=== PATIENT | female | born 1970 | race Caucasian/White ===

== ENCOUNTER 2017-11-11 17:34 | Inpatient (IN) | payer OTHER ==
[2017-11-11 19:19] LABS: HCT 42.4 % (34.0-46.0); HGB 13.7 gm/dL (11.4-16.0); MCH 28.2 pg (25.0-35.0); MCHC 32.4 g/dL (31.0-37.0); MCV 87.2 fL (80.0-100.0); Mean Platelet Volume 6.5; Platelet Count 319 k/uL (150-450); RBC 4.86 m/uL (3.80-5.40); RDW 14.1 % (11.5-15.5); WBC 7.1 k/uL (3.8-10.6)
[2017-11-11] MEDS ORDERED: HYDROcodone/APAP 5-325MG 1 EACH TAB PO STA (19:28)
[2017-11-11] MEDS ORDERED: cefTRIAXone IN SWFI 1,000 MG/10 ML SYRINGE IVP STA (19:53)
--- NOTE | 2017-11-11 20:04 | XR ---
EXAMINATION TYPE: XR mandible complete DATE OF EXAM: 11/11/2017 COMPARISON: NONE HISTORY: Mandible pain TECHNIQUE: 5 views FINDINGS: The mandibular ring is intact. I see no fracture nor dislocation. IMPRESSION: Negative mandible exam.
[2017-11-11] MEDS ORDERED: ACETAMINOPHEN TAB 325 MG TAB PO PRN (21:12)
[2017-11-11] MEDS ORDERED: NALOXONE 0.4 MG/ML 1 ML VIAL IV PRN (21:12)
--- NOTE | 2017-11-11 21:12 | ED ---
General Adult HPI - General Chief complaint: Dental/Oral Stated complaint: POSS INFECTION FEVER Time Seen by Provider: 11/11/17 18:16 Source: patient Mode of arrival: ambulatory Limitations: no limitations - History of Present Illness Initial comments: 47-year-old female since to the emergency department for a chief complaint of mandibular pain 3 days. Patient had all her teeth pulled re-days ago and pain has been increasing since that time. Patient states she has had fevers at home but she has not checked them. Patient states she has a history of osteomyelitis in the jaw. She states her symptoms feel very similar to that. She states the last time she had osteomyelitis it occurred when she had an infected tooth pulled and she states the tooth she had pulled 3 days ago was infected. Patient states the pain is in her jaw and radiating down her neck. Patient states the pain is uncontrolled with Motrin and [place]. Patient has no other complaints at this time including shortness of breath, chest pain, abdominal pain, nausea or vomiting, headache, or visual changes. - Related Data Home Medications Medication Instructions Recorded Confirmed Albuterol Inhaler [Ventolin 2 puff INHALATION Q4HR PRN 10/02/11/11/17 Inhaler] Cephalexin [Keflex] 500 mg PO QID 11/11/17 11/11/17 Clindamycin HCl [Cleocin] 150 mg PO TID 11/11/17 11/11/17 Gabapentin [Neurontin] 800 mg PO TID 11/11/17 11/11/17 HYDROcodone/APAP 5-325MG [[place] 1 tab PO Q6H PRN 11/11/17 11/11/17 5-325] Metoprolol Tartrate [Lopressor] 50 mg PO BID 11/11/17 11/11/17 Montelukast [Singulair] 10 mg PO HS 11/11/17 11/11/17 Omeprazole [PriLOSEC] 40 mg PO DAILY 11/11/17 11/11/17 Simvastatin [Zocor] 10 mg PO HS 11/11/17 11/11/17 Temazepam [Restoril] 15 mg PO HS PRN 11/11/17 11/11/17 amLODIPine [Norvasc] 10 mg PO HS 11/11/17 11/11/17 cloNIDine HCL [Catapres] 0.3 mg PO BID 11/11/17 11/11/17 traMADol HCL [Ultram] 50 mg PO BID PRN 11/11/17 11/11/17 Allergies Allergy/AdvReac Type Severity Reaction Status Date / Time ibuprofen [From Motrin] Allergy Unknown Verified 11/11/17 18:17 NSAIDS (Non-Steroidal Allergy Unknown Verified 11/11/17 18:17 Anti-Inflamma Penicillins Allergy Unknown Verified 11/11/17 18:17 Sulfa (Sulfonamide Allergy Unknown Verified 11/11/17 18:17 Antibiotics) vancomycin Allergy Unknown Verified 11/11/17 18:17 Review of Systems ROS Statement: Those systems with pertinent positive or pertinent negative responses have been documented in the HPI. ROS Other: All systems not noted in ROS Statement are negative. Past Medical History Past Medical History: COPD, Seizure Disorder Additional Past Medical History / Comment(s): pancreatitis History of Any Multi-Drug Resistant Organisms: None Reported Past Surgical History: Orthopedic Surgery Additional Past Surgical History / Comment(s): knee surgery Past Psychological History: Anxiety, PTSD Smoking Status: Current every day smoker Past Alcohol Use History: None Reported Past Drug Use History: None Reported General Exam Limitations: no limitations General appearance: alert, in no apparent distress Head exam: Present: atraumatic, normocephalic, normal inspection Eye exam: Present: normal appearance, PERRL, EOMI. Absent: scleral icterus, conjunctival injection, periorbital swelling ENT exam: Present: mucous membranes moist, TM's normal bilaterally, normal external ear exam, other (tenderness in right side mandible, no significant swelling noted to the mandible or neck.). Absent: normal oropharynx (patient has had all teeth removed. Mild purulent material noted on teeth.) Neck exam: Present: normal inspection, tenderness (tenderness to lateral side of neck.), full ROM. Absent: meningismus, lymphadenopathy Respiratory exam: Present: normal lung sounds bilaterally. Absent: respiratory distress, wheezes, rales, rhonchi, stridor Cardiovascular Exam: Present: regular rate, normal rhythm, normal heart sounds. Absent: systolic murmur, diastolic murmur, rubs, gallop, clicks Neurological exam: Present: alert, oriented X3, CN II-XII intact Course Vital Signs 11/11/17 11/11/17 17:57 20:44 Temperature 99.8 F H 98.3 F Pulse Rate 106 H 80 Respiratory 18 20 Rate Blood Pressure 118/84 124/56 O2 Sat by Pulse 98 99 Oximetry Medical Decision Making - Medical Decision Making 47-year-old female process to the emergency determine for chief complaint of pain in the right mandible after tooth extraction 3 days ago. Patient has a history of osteomyelitis in the jaw. Patient states the symptoms are exactly similar as when she had that she is very concerned she has osteomyelitis beginning again. Patient borerline febrile in ER 99.8 withHR 106. States she just took tylenol. White count 7.1. CBC unremarkable. CRP 22.2. X-ray of the mandible shows a normal mandible. Discussed with patient going home on antibiotics or being admitted to the emergency department for IV antibiotics. Patient states that she is still very concerned of osteomyelitis and would like to be admitted at this time for IV antibiotics. Patient is penicillin ALLERGIC and states she has been on clindamycin often in the past and it has not helped her dental infections. Discussed with Dr Valdes. - Lab Data Result diagrams: 11/11/17 19:00 Lab Results 11/11/17 11/11/17 Range/Units 19:00 19:00 WBC 7.1 (3.8-10.6) k/uL RBC 4.86 (3.80-5.40) m/uL Hgb 13.7 (11.4-16.0) gm/dL Hct 42.4 (34.0-46.0) % MCV 87.2 (80.0-100.0) fL MCH 28.2 (25.0-35.0) pg MCHC 32.4 (31.0-37.0) g/dL RDW 14.1 (11.5-15.5) % Plt Count 319 (150-450) k/uL C-Reactive Protein 22.2 H (<10.0) mg/L Disposition Clinical Impression: Mandible pain, History of osteomyelitis Disposition: ADMITTED IP TO THIS [facility] Condition: Good Is patient prescribed a controlled substance at d/c from ED?: No Referrals: Nonstaff,Physician [Primary Care Provider] - 1-2 days Time of Disposition: 21:11
[2017-11-11] MEDS: GABAPENTIN 400 MG CAP PO SCH (22:09)
[2017-11-11] MEDS: MORPHINE SULFATE 4 MG/ML SYRINGE IV PRN (22:09)
[2017-11-12] MEDS: SODIUM CHLORIDE 0.9% 1,000 ML IV SCH ×3 (00:16→17:36)
[2017-11-12] MEDS: TEMAZEPAM 15 MG CAP PO PRN ×2 (00:17→20:40)
[2017-11-12] MEDS: NICOTINE 14MG/24HR PATCH TRANSDERM SCH ×2 (00:17→10:15)
[2017-11-12] MEDS: MORPHINE SULFATE 4 MG/ML SYRINGE IV PRN (01:52)
[2017-11-12] MEDS: HYDROmorphone 1 MG/ML 1 ML SYRINGE IVP PRN ×5 (04:14→21:47)
[2017-11-12] MEDS: HYDROcodone/APAP 5-325MG 1 EACH TAB PO PRN ×4 (05:19→20:39)
[2017-11-12] MEDS: clonazePAM 1 MG TAB PO PRN ×2 (05:48→23:30)
[2017-11-12] MEDS: PANTOPRAZOLE 40 MG TABLET PO SCH ×3 (06:40→10:15)
[2017-11-12] MEDS ORDERED: METOPROLOL TARTRATE 50 MG TAB PO SCH (09:00)
[2017-11-12] MEDS ORDERED: cefTRIAXone IN SWFI 1,000 MG/10 ML SYRINGE IVP SCH (09:00)
[2017-11-12] MEDS: cloNIDine HCL 0.1 MG TAB PO SCH ×2 (09:54→20:48)
[2017-11-12] MEDS: METOPROLOL TARTRATE 50 MG TAB PO SCH ×2 (09:55→21:20)
[2017-11-12] MEDS: GABAPENTIN 400 MG CAP PO SCH ×3 (10:15→20:38)
[2017-11-12 11:47] LABS: Glucose,Whole Blood 110 mg/dL (75-99)
--- NOTE | 2017-11-12 13:53 | HP ---
HISTORY AND PHYSICAL Leia Monteiro is a 47-year-old female who presented to the ED at [facility] with pain in her jaw. She had teeth pulled in her mandibular area at the [facility] and previously had a history of osteomyelitis in the jaw. She had an infected tooth recently which was pulled about 3-4 days ago. She is also having some pain radiating down her neck. She subsequently was seen in the ED and admitted for further evaluation. She apparently had been on antibiotics for the last 2 weeks. PAST MEDICAL HISTORY: Positive for pancreatitis, seizure disorder, right knee surgery, previous infection of her right knee, anxiety, PTSD. SOCIAL HISTORY: Patient is a smoker. Does not drink alcohol excessively. FAMILY HISTORY: Noncontributory. MEDICATIONS: Prior to admission were: 1. Restoril. 2. Metoprolol. 3. Klonopin. 4. Catapres. 5. Norvasc. 6. [place]. 7. Neurontin. 8. Prilosec. 9. Cleocin. 10.Keflex. 11.Singulair. 12.Zocor. 13.Ventolin. REVIEW OF SYSTEMS: Noncontributory. PHYSICAL EXAMINATION: Respiratory rate is 18, pulse rate 90, temperature 98.4, blood pressure 106/63, O2 SATs on room air is 95%. HEENT: Reveals pupils equal, evaluation of the jaw does show a recent scar within the mandibular area on the right with some minimal drainage. There is no jugular venous distention. No lymphadenopathy in the neck. Chest is relatively clear. Cardiovascular system reveals an S1, S2. Abdomen is soft. There is no edema. Glucose is 110. White count of 7.1, hemoglobin of 13.7. Mandibular x-ray done showed no evidence of any changes. IMPRESSION: 1. Mandibular pain on the right. 2. Possible osteomyelitis. 3. Chronic pain. 4. Asthma versus chronic obstructive pulmonary disease, which may be mild. At this point in time, would have the patient seen by oral surgery and Infectious diseases. Would keep the patient on Rocephin until seen by ID. Continue Singulair and bronchodilators. Her prognosis at this time is guarded. MMODL / IJN: [id number] /
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
[2017-11-12] MEDS: MEROPENEM 1 GM in SODIUM CHLORIDE 0.9% 100 ML IVPB SCH ×2 (17:35→23:30)
--- NOTE | 2017-11-12 17:39 | XR ---
EXAMINATION TYPE: XR panorex DATE OF EXAM: 11/12/2017 COMPARISON: 11/11/2017 HISTORY: Right jaw osteomyelitis TECHNIQUE: Single view panorex of the jaw was obtained. FINDINGS: Right mandibular tooth extraction site is seen. No periosteal reaction is noted. No evidenc e of acute fracture or dislocation. No focal sclerosis. Visualized paranasal sinuses appear well aera david. IMPRESSION: Right mandibular site of tooth extraction is noted however no definitive evidence of oste omyelitis on radiograph. MRI could be performed to evaluate for bone marrow replacing process such as osteomyelitis and enhancement if there is further clinical indication.
[2017-11-12] MEDS: ATORVASTATIN 10 MG TAB PO SCH (20:38)
[2017-11-12] MEDS: MONTELUKAST 10 MG TAB PO SCH (20:38)
[2017-11-12] MEDS: QUEtiapine 25 MG TAB PO SCH (20:40)
[2017-11-12] MEDS: amLODIPine 10 MG TAB PO SCH (21:20)
[2017-11-13] MEDS: HYDROcodone/APAP 5-325MG 1 EACH TAB PO PRN ×6 (00:01→22:13)
[2017-11-13] MEDS: HYDROmorphone 1 MG/ML 1 ML SYRINGE IVP PRN ×5 (04:38→20:18)
[2017-11-13] MEDS: SODIUM CHLORIDE 0.9% 1,000 ML IV SCH ×2 (04:38→14:36)
[2017-11-13 07:51] LABS: Basophils % (A) 0 %; Eosinophils # (A) 0.2 k/uL (0-0.7); Eosinophils % (A) 5 %; HCT 37.9 % (34.0-46.0); HGB 12.3 gm/dL (11.4-16.0); Lymphocytes # (A) 1.6 k/uL (1.0-4.8); Lymphocytes % (A) 43 %; MCH 28.9 pg (25.0-35.0); MCHC 32.5 g/dL (31.0-37.0); MCV 89.1 fL (80.0-100.0); Mean Platelet Volume 6.3; Monocytes # (A) 0.1 k/uL (0-1.0); Monocytes % (A) 4 %; Neutrophils # (A) 1.7 k/uL (1.3-7.7); Neutrophils % (A) 47 %; Platelet Count 235 k/uL (150-450); RBC 4.26 m/uL (3.80-5.40); RDW 14.4 % (11.5-15.5); WBC 3.7 k/uL (3.8-10.6)
--- NOTE | 2017-11-13 08:54 | US ---
EXAMINATION TYPE: US venous doppler duplex LE DATE OF EXAM: 11/13/2017 8:42 AM COMPARISON: NONE CLINICAL HISTORY: calf pain/redness/hx of dvt. h/o dvt's and pe's, currently off thinners for 1 year, right calf pain started today, no swelling SIDE PERFORMED: Bilateral TECHNIQUE: The lower extremity deep venous system is examined utilizing real time linear array sonog tiffanie with graded compression, doppler sonography and color-flow sonography. VESSELS IMAGED: External Iliac Vein (EIV) Common Femoral Vein Deep Femoral Vein Greater Saphenous Vein * Femoral Vein Popliteal Vein Small Saphenous Vein * Proximal Calf Veins (* superficial vessels) Large habitus Right Leg: Appears negative for DVT Left Leg: Appears negative for DVT, 4cm complex fluid collection seen anterior to vessels within pop iteal fossa, probable Jaime's cyst IMPRESSION: THIS EXAMINATION IS NEGATIVE FOR DVT IN THE LEFT LEG BUT POSITIVE FOR A SMALL POPLITEAL FOSSA CYST.
[2017-11-13] MEDS: MEROPENEM 1 GM in SODIUM CHLORIDE 0.9% 100 ML IVPB SCH ×2 (08:56→16:41)
[2017-11-13] MEDS: GABAPENTIN 400 MG CAP PO SCH ×3 (08:57→20:16)
[2017-11-13] MEDS: QUEtiapine 25 MG TAB PO SCH (09:07)
[2017-11-13] MEDS: METOPROLOL TARTRATE 50 MG TAB PO SCH ×2 (09:07→20:16)
[2017-11-13] MEDS: NICOTINE 14MG/24HR PATCH TRANSDERM SCH (09:08)
[2017-11-13] MEDS: cloNIDine HCL 0.1 MG TAB PO SCH ×2 (09:08→20:18)
[2017-11-13 10:34] LABS: Erythrocyte Sedimentation Rate 13 mm/hr (0-20)
--- NOTE | 2017-11-13 14:00 | P.PN ---
Subjective Progress Note Date: 11/13/17 47-year-old female presents to the emergency center with a several- day history of increasing pain and swelling to the right lower jaw that radiated into her neck and her clavicle. The patient relates to a history of bulimia and has had multiple dental troubles over the years. Earlier this summer she underwent a removal of all of her upper teeth and had early denture placement. She did relatively well but then was having increasing difficulties with her lower jaw. She eventually underwent tooth extraction from the lower jaw recently and at that time there was evidence of a abscess to the right lower jaw. The teeth were extracted and she was placed into an early fit denture. The patient relates that several days ago she started feeling poorly and 3 days ago her pain started to become increasingly worse she continued to have pain and swelling to the right lower jaw and is noted to track down on her neck she was still able to taste the purulent discharge from the area of the prior abscess. He has pain increased and she was having bouts of feeling cold and hot she presented to the emergency center. If in time there is evidence of significant swelling to the right lower jaw, she had increasing pain and subsequently was admitted. With concerns to the infection at that site the infectious diseases consultation was requested. The patient this time is quite miserable. She's having severe amount of anxiety related to the difficulties with her jaw. She relates that she's had osteomyelitis of the jaw in the past that was a very difficult event for her. She does have difficulties with PTSD related to the events that resulted in her bulimia many years ago. The patient relates that she has been on antibiotic therapy with combination of clindamycin as well as Keflex 3 weeks on 1 week off for the last many months. 11/13/2017 patient is feeling slightly better today. Although was quite difficult with the nurses and transport staff earlier this morning. She was very demanding about the timing of her narcotic therapy. She fortunately now is settled down quite a bit, and a duplex scan was negative for deep venous thrombosis. Is noted the patient has had severe pain to the oral cavity which seems to be improved today. She appears that she get some rest with the addition of Seroquel last night. The patient is informed that the Panorex study has not revealed evidence of osteomyelitis Objective - Vital Signs Vital signs: Vital Signs Temp 97.7 F 11/13/17 08:00 Pulse 93 07/29/18 08:00 Resp 18 11/13/17 08:00 BP 130/80 11/13/17 10:51 Pulse Ox 95 11/13/17 08:00 Intake & Output 11/12/17 11/13/17 11/13/17 18:59 06:59 18:59 Intake Total 180 820 Balance 180 820 Intake: Oral 180 820 Other: # Voids 2 2 - Exam 47-year-old woman who presents with a BMI of 35, complains of severe pain to the right lower jaw HEENT: Anicteric conjunctiva are pink and moist nasal mucosa grossly intact without significant lesions, there is no thrush. There is evidence of the recent surgical extraction of the teeth. Multiple sutures are in place. She has distinct and severe tenderness to the right lower jaw. She is able to open and close her jaw freely at this time. There is no trismus. The amount of erythema that was present on the neck and lower jaw has improved in the last 24 hours She has distinct tenderness inferior to the jaw onto the right lateral aspect of the neck that travels down to the clavicle. There is no significant palpable mass in this region. Neck: The neck is supple without significant lymphadenopathy or thyromegaly. Lungs: Good bilateral air entry without significant crackles only few wheezes are heard. There is no significant bronchial sounds. There is no egophony or dullness. Heart: Regular rate and rhythm with an audible S1-S2, no S3 no S4. There is no significant murmur click or rub, PMI was nondisplaced. Abdomen: Positive bowel sounds soft and nontender without palpable masses or organomegaly. There was no guarding or rebound. Extremities: The upper extremities have excellent pulses they are symmetric, no significant petechiae or telangiectasia. No splinter hemorrhages were noted. The lower extremities are free from significant edema. The peripheral pulses were 2+ and symmetric. Neuro: Awake alert oriented to person place and time. There are no acute new gross focal sensory motor deficits. She is less anxious anxious, but was very difficult with the staff earlier in the day. - Labs CBC & Chem 7: 11/13/17 07:30 Labs: Abnormal Lab Results - Last 24 Hours (Table) 11/13/17 Range/Units 07:30 WBC 3.7 L (3.8-10.6) k/uL Microbiology - Last 24 Hours (Table) 11/11/17 19:00 Blood Culture - Preliminary Blood No Growth after 24 hours Laboratory Results WBC 3.7 k/uL (3.8-10.6) L 11/13/17 07:30 RBC 4.26 m/uL (3.80-5.40) 11/13/17 07:30 Hgb 12.3 gm/dL (11.4-16.0) 11/13/17 07:30 Hct 37.9 % (34.0-46.0) 11/13/17 07:30 MCV 89.1 fL (80.0-100.0) 11/13/17 07: MCH 28.9 pg (25.0-35.0) 11/13/17 07: MCHC 32.5 g/dL (31.0-37.0) 11/13/17 07:30 RDW 14.4 % (11.5-15.5) 11/13/17 07:30 Plt Count 235 k/uL (150-450) 11/13/17 07:30 Neutrophils % 47 % 11/13/17 07:30 Lymphocytes % 43 % 11/13/17 07:30 Monocytes % 4 % 11/13/17 07:30 Eosinophils % 5 % 11/13/17 07:30 Basophils % 0 % 11/13/17 07:30 Neutrophils # 1.7 k/uL (1.3-7.7) 11/13/17 07:30 Lymphocytes # 1.6 k/uL (1.0-4.8) 11/13/17 07:30 Monocytes # 0.1 k/uL (0-1.0) 11/13/17 07:30 Eosinophils # 0.2 k/uL (0-0.7) 11/13/17 07:30 Basophils # 0.0 k/uL (0-0.2) 11/13/17 07:30 ESR 13 mm/hr (0-20) 11/13/17 07:30 POC Glucose (mg/dL) 110 mg/dL (75-99) H 11/12/17 11:41 POC Glu Records Coordinator ID Renay Limon 11/12/17 11:41 C-Reactive Protein 22.2 mg/L (<10.0) H 11/11/17 19:00 Panorex reviewed no evidence of any periosteal reaction or osteomyelitis to the jaw. Assessment and Plan (1) Mandible pain Narrative/Plan: 47-year-old woman who has a history of severe tooth decay related to her years of bulimia when she was younger. She is ready had complete extraction of the upper teeth and I will relatively well starting earlier this summer. Recently underwent the lower jaw tooth extraction was having difficulty with what appears to be an abscess to the right lower jaw. She relates that she's been treated with an extensive course of outpatient oral antibiotic therapy and it is now developed a significant difficulty with the right lower jaw. There is swelling to the tissue I cannot express any purulence at this time. It however is extremely tender over the lower jaw. There is also tenderness to the neck with some scant erythema but no fluctuance. The neck is completely supple. If this time concerns to infection to the site that he has not been treated with clindamycin and cephalexin. She relates that she has a significant difficulty with penicillin that she developed a rash with bloody blisters she was a teenager and has not taken it since. Has not had difficulties with cephalosporins as noted above. Consequently at this point in time we'll initiate antibiotic therapy with meropenem to cover for the plethora of bacteria that may exist within the oral cavity. With her ALLERGIES should be acceptable and then if necessary will be able to transition to ertapenem as an outpatient. We'll ask for a Panorex x- ray of the jaw to further evaluate for the possibility of infection within the right lower mandible. If underlying osteomyelitis exists within need to plan on outpatient antibiotic therapy. Follow blood work will be requested. Patient is also having severe anxiety, pain control is adequate but she is ALLERGIC to nonsteroidals and constantly Toradol cannot be given. We'll give a trial of Seroquel at a dose of 25 mg orally twice per day to see if this can help with her severe refractory anxiety. 11/13/2017 the patient has had some improvement of her status, especially now later in the morning is much more calm and pain is better controlled. The patient was on a many week course of oral antibiotic therapy in the outpatient setting and developed a significant infection related to the jaw that appeared to track through the neck. At this time she is showing improvement with current antibiotic therapy of meropenem. We discussed the failure of the oral antibiotic therapy and will transition her to Invanz to be given in the outpatient setting when she is ready for discharge to home. She understands that I will not be in charge of her pain medication. She however has significant anxiety Seroquel was started she did receive some relief to it but will increase the dose and that the 25 mg dose did not seem to be ideal yet. We'll ask for a midline catheter be placed for her outpatient antibiotic therapy. Current Visit: Yes Status: Acute Code(s): R68.84 - JAW PAIN SNOMED Code(s) : 386737102 (2) History of osteomyelitis Current Visit: Yes Status: Acute Code(s): Z87.39 - PERSONAL HISTORY OF DISEASES OF THE MS SYS AND CONN TISS SNOMED Code(s): 133689986
--- NOTE | 2017-11-13 14:09 | PN ---
PROGRESS NOTE DATE OF SERVICE: 11/13/2017 She was seen again on November 13, 2017. Her pain is under control. She has been seen by ID and started on meropenem. She is doing better overall. On physical examination, blood pressure is 130/80, respiratory rate of 18, pulse of 93, temperature 97.7, O2 saturation on room air is 95%. HEENT is unremarkable. Chest is clear. Cardiovascular system reveals an S1, S2. Abdomen is soft. There is no edema. Venous Doppler study of her leg shows negative for DVT, but a Jaime cyst in the left leg. A Panorex view of her mandible shows evidence of right mandibular site of tooth extraction with no definite of evidence osteomyelitis. IMPRESSION: At this time: 1. Right mandibular osteomyelitis and infection is likely. 2. Intense pain right mandible. At this point in time, consideration is being given for IV antibiotics that may be done as an outpatient. Patient is being seen by ID and we appreciate their input and intervention. MMODL / IJN: [id number] /
[2017-11-13] MEDS: ATORVASTATIN 10 MG TAB PO SCH (20:16)
[2017-11-13] MEDS: amLODIPine 10 MG TAB PO SCH (20:16)
[2017-11-13] MEDS: MONTELUKAST 10 MG TAB PO SCH (20:17)
[2017-11-13] MEDS: QUEtiapine 50 MG TAB PO SCH (20:19)
[2017-11-14] MEDS: SODIUM CHLORIDE 0.9% 1,000 ML IV SCH ×3 (00:17→21:05)
[2017-11-14] MEDS: clonazePAM 1 MG TAB PO PRN (00:18)
[2017-11-14] MEDS: MEROPENEM 1 GM in SODIUM CHLORIDE 0.9% 100 ML IVPB SCH ×4 (00:18→23:50)
[2017-11-14] MEDS: HYDROmorphone 1 MG/ML 1 ML SYRINGE IVP PRN ×4 (00:18→18:06)
[2017-11-14] MEDS: PANTOPRAZOLE 40 MG TABLET PO SCH (06:16)
[2017-11-14] MEDS: HYDROcodone/APAP 5-325MG 1 EACH TAB PO PRN ×3 (08:33→21:03)
[2017-11-14] MEDS: NICOTINE 14MG/24HR PATCH TRANSDERM SCH ×2 (08:33→08:35)
[2017-11-14] MEDS: GABAPENTIN 400 MG CAP PO SCH ×3 (08:35→21:03)
[2017-11-14] MEDS: cloNIDine HCL 0.1 MG TAB PO SCH ×2 (08:35→21:03)
[2017-11-14] MEDS: METOPROLOL TARTRATE 50 MG TAB PO SCH ×2 (08:35→21:03)
[2017-11-14] MEDS: CYCLOBENZAPRINE 5 MG TAB PO PRN (18:05)
[2017-11-14] MEDS: amLODIPine 10 MG TAB PO SCH (21:03)
[2017-11-14] MEDS: ATORVASTATIN 10 MG TAB PO SCH (21:03)
[2017-11-14] MEDS: TEMAZEPAM 15 MG CAP PO PRN (21:03)
[2017-11-14] MEDS: MONTELUKAST 10 MG TAB PO SCH (21:04)
[2017-11-14] MEDS: QUEtiapine 50 MG TAB PO SCH (21:04)
--- NOTE | 2017-11-14 23:29 | P.PN ---
Subjective Progress Note Date: 11/14/17 47-year-old female presents to the emergency center with a several- day history of increasing pain and swelling to the right lower jaw that radiated into her neck and her clavicle. The patient relates to a history of bulimia and has had multiple dental troubles over the years. Earlier this summer she underwent a removal of all of her upper teeth and had early denture placement. She did relatively well but then was having increasing difficulties with her lower jaw. She eventually underwent tooth extraction from the lower jaw recently and at that time there was evidence of a abscess to the right lower jaw. The teeth were extracted and she was placed into an early fit denture. The patient relates that several days ago she started feeling poorly and 3 days ago her pain started to become increasingly worse she continued to have pain and swelling to the right lower jaw and is noted to track down on her neck she was still able to taste the purulent discharge from the area of the prior abscess. He has pain increased and she was having bouts of feeling cold and hot she presented to the emergency center. If in time there is evidence of significant swelling to the right lower jaw, she had increasing pain and subsequently was admitted. With concerns to the infection at that site the infectious diseases consultation was requested. The patient this time is quite miserable. She's having severe amount of anxiety related to the difficulties with her jaw. She relates that she's had osteomyelitis of the jaw in the past that was a very difficult event for her. She does have difficulties with PTSD related to the events that resulted in her bulimia many years ago. The patient relates that she has been on antibiotic therapy with combination of clindamycin as well as Keflex 3 weeks on 1 week off for the last many months. 11/13/2017 patient is feeling slightly better today. Although was quite difficult with the nurses and transport staff earlier this morning. She was very demanding about the timing of her narcotic therapy. She fortunately now is settled down quite a bit, and a duplex scan was negative for deep venous thrombosis. Is noted the patient has had severe pain to the oral cavity which seems to be improved today. She appears that she get some rest with the addition of Seroquel last night. The patient is informed that the Panorex study has not revealed evidence of osteomyelitis 11/14/2017 the patient is further improved today and that she's been able to apply her lower denture. She has much less purulent drainage from the lower jaw. Pain in the neck is improved but persistent. She did obtain some sleep from Seroquel but the dose will be increased. As she is improving we'll transition to an outpatient course of intravenous antibiotic therapy. She understands that her pain control is per the primary service. Objective - Vital Signs Vital signs: Vital Signs Temp 98.8 F 11/14/17 22:38 Pulse 65 11/14/17 22:38 Resp 12 11/14/17 22:38 BP 118/64 11/14/17 22:38 Pulse Ox 95 11/14/17 22:38 Intake & Output 11/14/17 11/14/17 11/15/17 06:59 18:59 06:59 Intake Total 2220 Balance 2220 Intake: Oral 2220 Other: # Voids 2 2 - Exam 47-year-old woman who presents with a BMI of 35, complains of severe pain to the right lower jaw HEENT: Anicteric conjunctiva are pink and moist nasal mucosa grossly intact without significant lesions, there is no thrush. There is evidence of the recent surgical extraction of the teeth. Multiple sutures are in place. She has distinct and severe tenderness to the right lower jaw. She is able to open and close her jaw freely at this time. There is no trismus. Th erythema that was present on the neck and lower jaw has generally resolved, She has distinct tenderness inferior to the jaw onto the right lateral aspect of the neck that travels down to the clavicle. This however is improved today. There is no significant palpable mass in this region. Neck: The neck is supple without significant lymphadenopathy or thyromegaly. Lungs: Good bilateral air entry without significant crackles only few wheezes are heard. There is no significant bronchial sounds. There is no egophony or dullness. Heart: Regular rate and rhythm with an audible S1-S2, no S3 no S4. There is no significant murmur click or rub, PMI was nondisplaced. Abdomen: Positive bowel sounds soft and nontender without palpable masses or organomegaly. There was no guarding or rebound. Extremities: The upper extremities have excellent pulses they are symmetric, no significant petechiae or telangiectasia. No splinter hemorrhages were noted. The lower extremities are free from significant edema. The peripheral pulses were 2+ and symmetric. Neuro: Awake alert oriented to person place and time. There are no acute new gross focal sensory motor deficits. She is less anxious anxious, but was very difficult with the staff earlier in the day. - Labs CBC & Chem 7: 11/13/17 07:30 Labs: Microbiology - Last 24 Hours (Table) 11/11/17 19:00 Blood Culture - Preliminary Blood No Growth after 72 hours Laboratory Results WBC 3.7 k/uL (3.8-10.6) L 11/13/17 07:30 RBC 4.26 m/uL (3.80-5.40) 11/13/17 07:30 Hgb 12.3 gm/dL (11.4-16.0) 11/13/17 07:30 Hct 37.9 % (34.0-46.0) 11/13/17 07: MCV 89.1 fL (80.0-100.0) 11/13/17 07: MCH 28.9 pg (25.0-35.0) 11/13/17 07:30 MCHC 32.5 g/dL (31.0-37.0) 11/13/17 07:30 RDW 14.4 % (11.5-15.5) 11/13/17 07:30 Plt Count 235 k/uL (150-450) 11/13/17 07:30 Neutrophils % 47 % 11/13/17 07:30 Lymphocytes % 43 % 11/13/17 07:30 Monocytes % 4 % 11/13/17 07:30 Eosinophils % 5 % 11/13/17 07: Basophils % 0 % 11/13/17 07:30 Neutrophils # 1.7 k/uL (1.3-7.7) 11/13/17 07:30 Lymphocytes # 1.6 k/uL (1.0-4.8) 11/13/17 07: Monocytes # 0.1 k/uL (0-1.0) 11/13/17 07: Eosinophils # 0.2 k/uL (0-0.7) 11/13/17 07:30 Basophils # 0.0 k/uL (0-0.2) 11/13/17 07:30 ESR 13 mm/hr (0-20) 11/13/17 07:30 POC Glucose (mg/dL) 110 mg/dL (75-99) H 11/12/17 11:41 POC Glu Supervisor [employer] ID Renay Limon 11/12/17 11:41 C-Reactive Protein 22.2 mg/L (<10.0) H 11/11/17 19:00 Microbiology 11/11/17 19:00 Blood Blood Culture - Preliminary No Growth after 72 hours Assessment and Plan (1) Mandible pain Narrative/Plan: 47-year-old woman who has a history of severe tooth decay related to her years of bulimia when she was younger. She is ready had complete extraction of the upper teeth and I will relatively well starting earlier this summer. Recently underwent the lower jaw tooth extraction was having difficulty with what appears to be an abscess to the right lower jaw. She relates that she's been treated with an extensive course of outpatient oral antibiotic therapy and it is now developed a significant difficulty with the right lower jaw. There is swelling to the tissue I cannot express any purulence at this time. It however is extremely tender over the lower jaw. There is also tenderness to the neck with some scant erythema but no fluctuance. The neck is completely supple. If this time concerns to infection to the site that he has not been treated with clindamycin and cephalexin. She relates that she has a significant difficulty with penicillin that she developed a rash with bloody blisters she was a teenager and has not taken it since. Has not had difficulties with cephalosporins as noted above. Consequently at this point in time we'll initiate antibiotic therapy with meropenem to cover for the plethora of bacteria that may exist within the oral cavity. With her ALLERGIES should be acceptable and then if necessary will be able to transition to ertapenem as an outpatient. We'll ask for a Panorex x- ray of the jaw to further evaluate for the possibility of infection within the right lower mandible. If underlying osteomyelitis exists within need to plan on outpatient antibiotic therapy. Follow blood work will be requested. Patient is also having severe anxiety, pain control is adequate but she is ALLERGIC to nonsteroidals and constantly Toradol cannot be given. We'll give a trial of Seroquel at a dose of 25 mg orally twice per day to see if this can help with her severe refractory anxiety. 11/13/2017 the patient has had some improvement of her status, especially now later in the morning is much more calm and pain is better controlled. The patient was on a many week course of oral antibiotic therapy in the outpatient setting and developed a significant infection related to the jaw that appeared to track through the neck. At this time she is showing improvement with current antibiotic therapy of meropenem. We discussed the failure of the oral antibiotic therapy and will transition her to Invanz to be given in the outpatient setting when she is ready for discharge to home. She understands that I will not be in charge of her pain medication. She however has significant anxiety Seroquel was started she did receive some relief to it but will increase the dose and that the 25 mg dose did not seem to be ideal yet. We'll ask for a midline catheter be placed for her outpatient antibiotic therapy. 11/14/2017 the patient has had some improvement of her status but is complaining of difficulties with pain. Despite this she now has her lower denture and is tolerating it quite well. Working with the insurance company for approval of her outpatient intravenous antibiotic therapy given the failure of oral antibiotic therapy that she was on. It with her ALLERGIES ertapenem is a most logical choice to cover the pathogens of the oral cavity. He has noted it was likely that she was having some extension of the infection through the venous and lymphatic drainage at the neck is now showing marked improvement. The Panorex and did not reveal evidence of osteomyelitis. The patient is anxious about her pain control and again this is directed to the primary service , she is instructed that she needs to limit the intravenous pain medicine that she is on because she will not receiving that as of tomorrow when she is discharged home. Current Visit: Yes Status: Acute Code(s): R68.84 - JAW PAIN SNOMED Code(s) : 945789248 (2) History of osteomyelitis Current Visit: Yes Status: Acute Code(s): Z87.39 - PERSONAL HISTORY OF DISEASES OF THE MS SYS AND CONN TISS SNOMED Code(s): 567227320
--- NOTE | 2017-11-15 00:28 | PN ---
PROGRESS NOTE DATE OF SERVICE: 11/14/2017. SUBJECTIVE: This is a 47-year-old white female with right mandibular infection, cellulitis of the right cheek, on heavy duty pain medicine. She is trying to be weaned off pain medicine that was started over this weekend prior to going home. She will need 2 weeks of IV antibiotics as an outpatient. OBJECTIVE: CARDIOVASCULAR: S1, S2. LUNGS: Clear. ENT: Shows mild jaw swelling, mild to moderate. She is able to chew and swallow. ASSESSMENT AND PLAN: Is allergic to all kinds of NSAIDs, codeine. She will be weaned off Dilaudid so she can be discharged home on IV antibiotics over the next 2 weeks, in the next 24 hours. MMODL / IJN: [id number] /
[2017-11-15] MEDS: CYCLOBENZAPRINE 5 MG TAB PO PRN (02:03)
[2017-11-15] MEDS: HYDROmorphone 1 MG/ML 1 ML SYRINGE IVP PRN ×3 (02:04→14:08)
[2017-11-15] MEDS: SODIUM CHLORIDE 0.9% 1,000 ML IV SCH (06:13)
[2017-11-15] MEDS: clonazePAM 1 MG TAB PO PRN (06:17)
[2017-11-15] MEDS: HYDROcodone/APAP 5-325MG 1 EACH TAB PO PRN ×4 (06:17→22:00)
[2017-11-15] MEDS: MEROPENEM 1 GM in SODIUM CHLORIDE 0.9% 100 ML IVPB SCH ×2 (07:53→16:21)
[2017-11-15] MEDS: PANTOPRAZOLE 40 MG TABLET PO SCH (08:17)
[2017-11-15] MEDS: NICOTINE 14MG/24HR PATCH TRANSDERM SCH (10:06)
[2017-11-15] MEDS: GABAPENTIN 400 MG CAP PO SCH ×3 (10:06→20:53)
[2017-11-15] MEDS: METOPROLOL TARTRATE 50 MG TAB PO SCH ×2 (10:06→20:54)
[2017-11-15] MEDS: cloNIDine HCL 0.1 MG TAB PO SCH ×2 (10:07→20:54)
[2017-11-15] MEDS: amLODIPine 10 MG TAB PO SCH (20:53)
[2017-11-15] MEDS: ATORVASTATIN 10 MG TAB PO SCH (20:53)
[2017-11-15] MEDS: MONTELUKAST 10 MG TAB PO SCH (20:53)
[2017-11-15] MEDS: QUEtiapine 50 MG TAB PO SCH (20:53)
--- NOTE | 2017-11-15 22:53 | PN ---
PROGRESS NOTE SUBJECTIVE: This is a white female. We are trying to wean her off the medications and give her oral pain medications and continue with IV antibiotics as an outpatient. Possibly discharge home tomorrow. Temperature 98.5, blood pressure is 120s-150s/90s-100, O2 95% on room air, pulse 70, respirations 16. She is status post PICC line placement today, awaiting possible discharge home tomorrow. CARDIOVASCULAR: S1, S2. LUNGS: Clear. RIGHT MANDIBLE: She is able to open and close her jaw, is eating apparently appropriate. She is feeling better today. She is weaning off Dilaudid. Anxiety and possibly bipolar. given her a trial Seroquel 25 mg twice a day due to anxiety and possibly discharge home tomorrow. MMODL / IJN: [id number] /
--- NOTE | 2017-11-15 23:18 | P.PN ---
Subjective Progress Note Date: 11/15/17 47-year-old female presents to the emergency center with a several- day history of increasing pain and swelling to the right lower jaw that radiated into her neck and her clavicle. The patient relates to a history of bulimia and has had multiple dental troubles over the years. Earlier this summer she underwent a removal of all of her upper teeth and had early denture placement. She did relatively well but then was having increasing difficulties with her lower jaw. She eventually underwent tooth extraction from the lower jaw recently and at that time there was evidence of a abscess to the right lower jaw. The teeth were extracted and she was placed into an early fit denture. The patient relates that several days ago she started feeling poorly and 3 days ago her pain started to become increasingly worse she continued to have pain and swelling to the right lower jaw and is noted to track down on her neck she was still able to taste the purulent discharge from the area of the prior abscess. He has pain increased and she was having bouts of feeling cold and hot she presented to the emergency center. If in time there is evidence of significant swelling to the right lower jaw, she had increasing pain and subsequently was admitted. With concerns to the infection at that site the infectious diseases consultation was requested. The patient this time is quite miserable. She's having severe amount of anxiety related to the difficulties with her jaw. She relates that she's had osteomyelitis of the jaw in the past that was a very difficult event for her. She does have difficulties with PTSD related to the events that resulted in her bulimia many years ago. The patient relates that she has been on antibiotic therapy with combination of clindamycin as well as Keflex 3 weeks on 1 week off for the last many months. 11/13/2017 patient is feeling slightly better today. Although was quite difficult with the nurses and transport staff earlier this morning. She was very demanding about the timing of her narcotic therapy. She fortunately now is settled down quite a bit, and a duplex scan was negative for deep venous thrombosis. Is noted the patient has had severe pain to the oral cavity which seems to be improved today. She appears that she get some rest with the addition of Seroquel last night. The patient is informed that the Panorex study has not revealed evidence of osteomyelitis 11/14/2017 the patient is further improved today and that she's been able to apply her lower denture. She has much less purulent drainage from the lower jaw. Pain in the neck is improved but persistent. She did obtain some sleep from Seroquel but the dose will be increased. As she is improving we'll transition to an outpatient course of intravenous antibiotic therapy. She understands that her pain control is per the primary service. 11/15/2017 patient has had further improvement and the lower denture remains in place. Not having purulence in the oral cavity. Overall is improved but is struggling with her pain control. Objective - Vital Signs Vital signs: Vital Signs Temp 98.5 F 11/15/17 20:08 Pulse 70 11/15/17 20:08 Resp 16 11/15/17 20:08 BP 151/113 11/15/17 20:08 Pulse Ox 95 11/15/17 20:08 Intake & Output 11/15/17 11/15/17 11/16/17 06:59 18:59 06:59 Other: Voiding Method Toilet # Voids 1 1 1 # Bowel Movements 1 - Exam 47-year-old woman who presents with a BMI of 35, complains of severe pain to the right lower jaw HEENT: Anicteric conjunctiva are pink and moist nasal mucosa grossly intact without significant lesions, there is no thrush. There is evidence of the recent surgical extraction of the teeth. Multiple sutures are in place. She has distinct and severe tenderness to the right lower jaw. She is able to open and close her jaw freely at this time. There is no trismus. Th erythema that was present on the neck and lower jaw has generally resolved, She has distinct tenderness inferior to the jaw onto the right lateral aspect of the neck that travels down to the clavicle. This however is improved today. There is no significant palpable mass in this region. Neck: The neck is supple without significant lymphadenopathy or thyromegaly. Lungs: Good bilateral air entry without significant crackles only few wheezes are heard. There is no significant bronchial sounds. There is no egophony or dullness. Heart: Regular rate and rhythm with an audible S1-S2, no S3 no S4. There is no significant murmur click or rub, PMI was nondisplaced. Abdomen: Positive bowel sounds soft and nontender without palpable masses or organomegaly. There was no guarding or rebound. Extremities: The upper extremities have excellent pulses they are symmetric, no significant petechiae or telangiectasia. No splinter hemorrhages were noted. The lower extremities are free from significant edema. The peripheral pulses were 2+ and symmetric. Neuro: Awake alert oriented to person place and time. There are no acute new gross focal sensory motor deficits. She is less anxious but still very worried about her pain control at discharge. - Labs CBC & Chem 7: 11/13/17 07:30 Labs: Microbiology - Last 24 Hours (Table) 11/11/17 19:00 Blood Culture - Preliminary Blood No Growth after 96 hours Laboratory Results WBC 3.7 k/uL (3.8-10.6) L 11/13/17 07:30 RBC 4.26 m/uL (3.80-5.40) 11/13/17 07:30 Hgb 12.3 gm/dL (11.4-16.0) 11/13/17 07:30 Hct 37.9 % (34.0-46.0) 11/13/17 07: MCV 89.1 fL (80.0-100.0) 11/13/17 07:30 MCH 28.9 pg (25.0-35.0) 11/13/17 07:30 MCHC 32.5 g/dL (31.0-37.0) 11/13/17 07:30 RDW 14.4 % (11.5-15.5) 11/13/17 07:30 Plt Count 235 k/uL (150-450) 11/13/17 07: Neutrophils % 47 % 11/13/17 07: Lymphocytes % 43 % 11/13/17 07:30 Monocytes % 4 % 11/13/17 07:30 Eosinophils % 5 % 11/13/17 07:30 Basophils % 0 % 11/13/17 07:30 Neutrophils # 1.7 k/uL (1.3-7.7) 11/13/17 07: Lymphocytes # 1.6 k/uL (1.0-4.8) 11/13/17 07:30 Monocytes # 0.1 k/uL (0-1.0) 11/13/17 07:30 Eosinophils # 0.2 k/uL (0-0.7) 11/13/17 07:30 Basophils # 0.0 k/uL (0-0.2) 11/13/17 07:30 ESR 13 mm/hr (0-20) 11/13/17 07:30 POC Glucose (mg/dL) 110 mg/dL (75-99) H 11/12/17 11:41 POC Glu Scaffold Builder ID Renay Limon 11/12/17 11:41 C-Reactive Protein 22.2 mg/L (<10.0) H 11/11/17 19:00 Assessment and Plan (1) Mandible pain Narrative/Plan: 47-year-old woman who has a history of severe tooth decay related to her years of bulimia when she was younger. She is ready had complete extraction of the upper teeth and I will relatively well starting earlier this summer. Recently underwent the lower jaw tooth extraction was having difficulty with what appears to be an abscess to the right lower jaw. She relates that she's been treated with an extensive course of outpatient oral antibiotic therapy and it is now developed a significant difficulty with the right lower jaw. There is swelling to the tissue I cannot express any purulence at this time. It however is extremely tender over the lower jaw. There is also tenderness to the neck with some scant erythema but no fluctuance. The neck is completely supple. If this time concerns to infection to the site that he has not been treated with clindamycin and cephalexin. She relates that she has a significant difficulty with penicillin that she developed a rash with bloody blisters she was a teenager and has not taken it since. Has not had difficulties with cephalosporins as noted above. Consequently at this point in time we'll initiate antibiotic therapy with meropenem to cover for the plethora of bacteria that may exist within the oral cavity. With her ALLERGIES should be acceptable and then if necessary will be able to transition to ertapenem as an outpatient. We'll ask for a Panorex x- ray of the jaw to further evaluate for the possibility of infection within the right lower mandible. If underlying osteomyelitis exists within need to plan on outpatient antibiotic therapy. Follow blood work will be requested. Patient is also having severe anxiety, pain control is adequate but she is ALLERGIC to nonsteroidals and constantly Toradol cannot be given. We'll give a trial of Seroquel at a dose of 25 mg orally twice per day to see if this can help with her severe refractory anxiety. 11/13/2017 the patient has had some improvement of her status, especially now later in the morning is much more calm and pain is better controlled. The patient was on a many week course of oral antibiotic therapy in the outpatient setting and developed a significant infection related to the jaw that appeared to track through the neck. At this time she is showing improvement with current antibiotic therapy of meropenem. We discussed the failure of the oral antibiotic therapy and will transition her to Invanz to be given in the outpatient setting when she is ready for discharge to home. She understands that I will not be in charge of her pain medication. She however has significant anxiety Seroquel was started she did receive some relief to it but will increase the dose and that the 25 mg dose did not seem to be ideal yet. We'll ask for a midline catheter be placed for her outpatient antibiotic therapy. 11/14/2017 the patient has had some improvement of her status but is complaining of difficulties with pain. Despite this she now has her lower denture and is tolerating it quite well. Working with the insurance company for approval of her outpatient intravenous antibiotic therapy given the failure of oral antibiotic therapy that she was on. It with her ALLERGIES ertapenem is a most logical choice to cover the pathogens of the oral cavity. He has noted it was likely that she was having some extension of the infection through the venous and lymphatic drainage at the neck is now showing marked improvement. The Panorex and did not reveal evidence of osteomyelitis. The patient is anxious about her pain control and again this is directed to the primary service , she is instructed that she needs to limit the intravenous pain medicine that she is on because she will not receiving that as of tomorrow when she is discharged home. 11/15/2017 the patient is now markedly improved. The swelling erythema and tenderness to the neck is improved. She is getting ready for discharge to home. Her antibiotic therapy has been approved for the home setting. She is struggling with her pain control and apparently once that has been further clarified to be discharged home later today or tomorrow. She'll follow in the office the end of her intravenous antibiotic therapy. Current Visit: Yes Status: Acute Code(s): R68.84 - JAW PAIN SNOMED Code(s) : 691976374 (2) History of osteomyelitis Current Visit: Yes Status: Acute Code(s): Z87.39 - PERSONAL HISTORY OF DISEASES OF THE MS SYS AND CONN TISS SNOMED Code(s): 927453863
[2017-11-16] MEDS: MEROPENEM 1 GM in SODIUM CHLORIDE 0.9% 100 ML IVPB SCH ×3 (00:19→16:20)
[2017-11-16] MEDS: HYDROcodone/APAP 5-325MG 1 EACH TAB PO PRN ×4 (05:40→17:42)
[2017-11-16] MEDS: HYDROmorphone 1 MG/ML 1 ML SYRINGE IVP PRN (07:41)
[2017-11-16] MEDS: PANTOPRAZOLE 40 MG TABLET PO SCH (07:43)
[2017-11-16] MEDS: cloNIDine HCL 0.1 MG TAB PO SCH ×2 (09:41→21:40)
[2017-11-16] MEDS: METOPROLOL TARTRATE 50 MG TAB PO SCH ×2 (09:41→21:41)
[2017-11-16] MEDS: GABAPENTIN 400 MG CAP PO SCH ×3 (09:41→21:41)
[2017-11-16] MEDS: NICOTINE 14MG/24HR PATCH TRANSDERM SCH (09:42)
[2017-11-16] MEDS: MAG HYDROX/AL HYDROX/SIMETH 30 ML, LIDOCAINE VISCOUS 30 ML, diphenhydrAMINE ELIXIR 75 M... PO SCH ×12 (11:05→21:41)
[2017-11-16] MEDS: CYCLOBENZAPRINE 5 MG TAB PO PRN (15:25)
--- NOTE | 2017-11-16 18:12 | PN ---
PROGRESS NOTE SUBJECTIVE: This is a 47-year-old white female with mandibular pain, abscess. She has been weaned off Dilaudid today. Will discontinue that and give her [place] for pain. Continue on her other medications. Give her Magic mouthwash. Continue with IV antibiotics. Possible discharge home later today or tomorrow. CARDIOVASCULAR: S1, S2. LUNGS: Transmitted upper airway sounds. HEMATOLOGY: Negative Homans. PSYCH: Fair mood and affect. She is able to swallow. She has some mild swelling over the right jaw at the right side of the neck. ASSESSMENT: Mandibular pain, cellulitis. Possible discharge home today or tomorrow, depending on her pain control. Broad- spectrum antibiotics at home for 2 weeks. IV treatment. MMODL / IJN: [id number] /
[2017-11-16] MEDS: amLODIPine 10 MG TAB PO SCH (21:41)
[2017-11-16] MEDS: QUEtiapine 50 MG TAB PO SCH (21:41)
[2017-11-16] MEDS: MONTELUKAST 10 MG TAB PO SCH (21:41)
[2017-11-16] MEDS: oxyCODONE-APAP 10-325MG 1 EACH TAB PO PRN (21:46)
[2017-11-16] MEDS: ATORVASTATIN 10 MG TAB PO SCH (21:49)
--- NOTE | 2017-11-16 21:57 | CT ---
EXAMINATION TYPE: CT soft tissue neck wo con DATE OF EXAM: 11/16/2017 HISTORY: right sided facial pain and swelling post multiple oral surgeries COMPARISON: CT DLP: 571 mGycm. Automated Exposure Control for Dose Reduction was Utilized. TECHNIQUE: CT scan of the neck is performed , patient injected with mL of , axial images are obtaine d, coronal and sagittal reformatted images are reviewed. FINDINGS: Examination of the suprahyoid and infrahyoid neck negative for focal fluid collections, sof t tissue emphysema, or focal inflammatory change. There is no mass or mass effect or focus of inflamm atory change. Airways: Unremarkable. Salivary glands: Negative. Osseous Structures: The upper and lower dentition show multifocal dental osteopenia regions, particul kika prominent in the alveolar ridge of the left maxilla. Cervical lymph node stations: No adenopathy. Visualized lung apices and superior mediastinum: Unremarkable. IMPRESSION: 1. Negative for abscess, phlegmon, or soft tissue emphysema. 2. Dental osteopenic regions, most impressively involving the left alveolar ridge.
[2017-11-16] MEDS: SODIUM CHLORIDE 0.9% 1,000 ML IV SCH (22:34)
[2017-11-17] MEDS: MEROPENEM 1 GM in SODIUM CHLORIDE 0.9% 100 ML IVPB SCH ×2 (00:17→08:27)
[2017-11-17] MEDS: oxyCODONE-APAP 10-325MG 1 EACH TAB PO PRN ×2 (06:26→10:48)
[2017-11-17] MEDS: PANTOPRAZOLE 40 MG TABLET PO SCH (06:38)
[2017-11-17 06:48] LABS: ALT 26 U/L (9-52); AST 20 U/L (14-36); Albumin 3.8 g/dL (3.5-5.0); Alkaline Phosphatase 82 U/L (38-126); Anion Gap 5 mmol/L; Blood Urea Nitrogen 8 mg/dL (7-17); Calcium 9.3 mg/dL (8.4-10.2); Carbon Dioxide 28 mmol/L (22-30); Chloride 108 mmol/L (98-107); Glucose 97 mg/dL (74-99); Potassium 4.6 mmol/L (3.5-5.1); Sodium 141 mmol/L (137-145); Total Bilirubin 0.2 mg/dL (0.2-1.3); Total Protein 6.2 g/dL (6.3-8.2)
[2017-11-17 06:51] LABS: HCT 43.2 % (34.0-46.0); HGB 13.9 gm/dL (11.4-16.0); MCHC 32.2 g/dL (31.0-37.0); Mean Platelet Volume 6.2; Platelet Count 259 k/uL (150-450); RDW 14.2 % (11.5-15.5); WBC 6.1 k/uL (3.8-10.6)
[2017-11-17 07:18] LABS: Eosinophils # (M) 0.43 k/uL (0-0.7); Lymphocytes # (M) 2.81 k/uL (1.0-4.8); Monocytes # (M) 0.31 k/uL (0-1.0); Neutrophils # (M) 2.56 k/uL (1.3-7.7); Neutrophils % (M) 42 %; Nucleated Red Blood Cells 0 /100 WBC (0-0); Total Cells Counted 100
[2017-11-17 07:47] VITALS: BP 119/75; PULSE 61; RESP 18; TEMP 98.3
[2017-11-17] MEDS: SODIUM CHLORIDE 0.9% 1,000 ML IV SCH ×2 (08:28→09:46)
[2017-11-17] MEDS: cloNIDine HCL 0.1 MG TAB PO SCH (08:28)
[2017-11-17] MEDS: MAG HYDROX/AL HYDROX/SIMETH 30 ML, LIDOCAINE VISCOUS 30 ML, diphenhydrAMINE ELIXIR 75 M... PO SCH ×4 (08:28)
[2017-11-17] MEDS: METOPROLOL TARTRATE 50 MG TAB PO SCH (08:28)
[2017-11-17] MEDS: GABAPENTIN 400 MG CAP PO SCH (08:29)
[2017-11-17] MEDS: NICOTINE 14MG/24HR PATCH TRANSDERM SCH (08:29)
--- NOTE | 2017-11-21 09:09 | CDI ---
Last Revision, March 2017 Documentation Clarification Form Date: 11/21/17 From: Dory Teresa Phone: If you have a question regarding this query, please contact Jaqui Erickson at [phone] between 8am and 5pm. Admit Date: 11/11/2017 9:11:00 PM Patient Name: Leia Monteior Visit Number: [id number] Discharge Date: 11/17/17 ATTENTION: The Clinical Documentation Specialists (CDI) and [facility] Coding Staff appreciate your assistance in clarifying documentation. Please respond to the clarification below the line at the bottom and electronically sign. The CDI & [facility] Coding staff will review the response and follow-up if needed. Please note: Queries are made part of the Legal Health Record. If you have any questions, please contact the author of this message via ITS. Aquiles Nolan MD Patient has been described as having a BMI of 35 is documented in your consult note and progress notes. History/Risk Factors: Patient was admitted for infection of her jaw due to dental caries. Patient has a history of COPD, seizure disorder, anxiety and PTSD. Patient also had bulimia when she was younger. Clinical Indicators: BMI 35.4 Patients weight is 90.718 kg Patients height is 5ft 3in Calculated BMI is 35.4 In order to capture the severity of condition associated with patient BMI of 35.4, a clinical diagnoses needs to be documented by the physician. Please clarify: Overweight Obese Morbidly obese Other, please specify ____ Unable to determine Obesity- obese class II present on admission MTDD
--- NOTE | 2017-12-05 08:13 | DS ---
DISCHARGE SUMMARY Admitted on 11/11/2017. Discharged 11/17/2017 DISCHARGE MEDICATIONS: 1. Ventolin inhaler 2 puffs q.4 hours p.r.n. 2. Norvasc 10 mg daily. 3. Keflex 500 q.i.d. 4. Cleocin 150 t.i.d. 5. Catapres 0.3 mg b.i.d. 6. Neurontin 800 t.i.d. 7. [place] 05/325 every 6 p.r.n. 8. Singulair 10 mg daily. 9. Prilosec 40 mg daily. 10.Zocor 10 mg daily. 11.Klonopin 1 mg daily. 12.Restoril 15 at bedtime. 13.Lopressor 50 b.i.d. 14.Invanz IV piggyback q.24 hours for 12 days. The patient was admitted for infection in her jaw due to dental caries, history COPD, seizure disorder, anxiety, posttraumatic stress disorder, possible bulimia. Her BMI is 35 in obesity category, so was diagnosed with obviously obesity and not any eating disorder. She was treated with IV antibiotics. Had Panorex x-rays to rule out osteomyelitis and when stabilized from Dr. Hurst' recommendations, she is sent home with IV antibiotics for 12 days. The Panorex x-ray of her mandible did not show osteomyelitis. IV pain medicine was given, switch to oral. She was sent home on IV antibiotics to follow up as an outpatient. MMODL / IJN: [id number] /
== END 2017-11-17 13:15 | disposition home health service (06) | DRG 158 ==
LOC: EC 17:34 → 6PED 21:11
PROVIDERS: ADMIT Family Medicine; ATTEND Family Medicine
PROC: 05H533Z Insertion of Infusion Device into Right Subclavian Vein, Percutaneous Approach (ICD-10-PCS; principal; 2017-11-14 10:10)
PROC: B546ZZA Ultrasonography of Right Subclavian Vein, Guidance (ICD-10-PCS; 2017-11-14 10:10)
DX: K12.2 Cellulitis and abscess of mouth (principal); L03.211 Cellulitis of face; M27.2 Inflammatory conditions of jaws; F17.200 Nicotine dependence, unspecified, uncomplicated; F43.10 Post-traumatic stress disorder, unspecified; E66.9 Obesity, unspecified; G40.909 Epilepsy, unspecified, not intractable, without status epilepticus; G89.29 Other chronic pain; J44.9 Chronic obstructive pulmonary disease, unspecified; M71.20 Synovial cyst of popliteal space [Baker], unspecified knee; K02.9 Dental caries, unspecified; F41.9 Anxiety disorder, unspecified; F10.21 Alcohol dependence, in remission; Z68.35 Body mass index [BMI] 35.0-35.9, adult; Z79.899 Other long term (current) drug therapy; Z88.6 Allergy status to analgesic agent; Z88.1 Allergy status to other antibiotic agents; Z88.0 Allergy status to penicillin; Z88.2 Allergy status to sulfonamides; Z86.718 Personal history of other venous thrombosis and embolism; Z86.711 Personal history of pulmonary embolism; Z86.59 Personal history of other mental and behavioral disorders; Z82.5 Family history of asthma and other chronic lower respiratory diseases
CPT/HCPCS: 36415; 36569; 70110; 70355; 70490; 76937; 80053; 85025; 85027; 85652; 86140; 87040; 93970; 96374; 99284

== ENCOUNTER → 2017-11-30 | Outpatient (CLI) | payer OTHER ==
[2017-11-30 15:32] LABS: Anion Gap 10 mmol/L; Blood Urea Nitrogen 8 mg/dL (7-17); C Reactive Protein 9.1 mg/L (<10.0); Calcium 9.4 mg/dL (8.4-10.2); Carbon Dioxide 21 mmol/L (22-30); Chloride 108 mmol/L (98-107); Glucose 115 mg/dL (74-99); Potassium 4.7 mmol/L (3.5-5.1); Sodium 139 mmol/L (137-145)
[2017-11-30 15:51] LABS: Basophils % (A) 0 %; Eosinophils # (A) 0.2 k/uL (0-0.7); Eosinophils % (A) 3 %; HCT 42.6 % (34.0-46.0); HGB 13.8 gm/dL (11.4-16.0); Lymphocytes # (A) 2.8 k/uL (1.0-4.8); Lymphocytes % (A) 35 %; MCH 28.3 pg (25.0-35.0); MCHC 32.3 g/dL (31.0-37.0); MCV 87.6 fL (80.0-100.0); Mean Platelet Volume 6.3; Monocytes # (A) 0.4 k/uL (0-1.0); Monocytes % (A) 5 %; Neutrophils # (A) 4.6 k/uL (1.3-7.7); Neutrophils % (A) 56 %; Platelet Count 284 k/uL (150-450); RBC 4.86 m/uL (3.80-5.40); RDW 14.2 % (11.5-15.5); WBC 8.1 k/uL (3.8-10.6)
[2017-11-30 19:35] LABS: Erythrocyte Sedimentation Rate 13 mm/hr (0-20)
== END | disposition home or self-care (01) ==
LOC: LABWHC1 14:57
PROVIDERS: ATTEND Internal Medicine Infectious Disease
DX: M27.2 Inflammatory conditions of jaws (principal); M86.9 Osteomyelitis, unspecified
CPT/HCPCS: 36415; 80048; 85025; 85652; 86140

== ENCOUNTER → 2017-12-06 | Outpatient (CLI) | payer OTHER ==
[2017-12-06 17:32] LABS: Basophils % (A) 0 %; Eosinophils # (A) 0.2 k/uL (0-0.7); Eosinophils % (A) 3 %; HCT 42.2 % (34.0-46.0); HGB 13.3 gm/dL (11.4-16.0); Lymphocytes # (A) 2.2 k/uL (1.0-4.8); Lymphocytes % (A) 29 %; MCH 28.2 pg (25.0-35.0); MCHC 31.5 g/dL (31.0-37.0); MCV 89.7 fL (80.0-100.0); Monocytes # (A) 0.3 k/uL (0-1.0); Monocytes % (A) 4 %; Neutrophils # (A) 4.8 k/uL (1.3-7.7); Neutrophils % (A) 62 %; Platelet Count 250 k/uL (150-450); RBC 4.71 m/uL (3.80-5.40); RDW 14.2 % (11.5-15.5); WBC 7.6 k/uL (3.8-10.6)
[2017-12-06 17:47] LABS: Anion Gap 8 mmol/L; Blood Urea Nitrogen 9 mg/dL (7-17); Calcium 9.4 mg/dL (8.4-10.2); Carbon Dioxide 25 mmol/L (22-30); Chloride 105 mmol/L (98-107); Glucose 97 mg/dL (74-99); Potassium 4.4 mmol/L (3.5-5.1); Sodium 138 mmol/L (137-145)
[2017-12-06 19:13] LABS: Erythrocyte Sedimentation Rate 18 mm/hr (0-20)
== END | disposition home or self-care (01) ==
LOC: LABWHC1 16:56
PROVIDERS: ATTEND Internal Medicine Infectious Disease
DX: M27.2 Inflammatory conditions of jaws (principal); M86.9 Osteomyelitis, unspecified
CPT/HCPCS: 36415; 80048; 85025; 85652; 86140

== ENCOUNTER → 2017-12-22 | Outpatient (CLI) | payer OTHER ==
[2017-12-22 15:49] LABS: Basophils # (A) 0.1 k/uL (0-0.2); Basophils % (A) 1 %; Eosinophils # (A) 0.3 k/uL (0-0.7); Eosinophils % (A) 3 %; HCT 44.4 % (34.0-46.0); HGB 14.3 gm/dL (11.4-16.0); Lymphocytes # (A) 2.9 k/uL (1.0-4.8); Lymphocytes % (A) 27 %; MCH 28.9 pg (25.0-35.0); MCHC 32.3 g/dL (31.0-37.0); MCV 89.5 fL (80.0-100.0); Mean Platelet Volume 6.3; Monocytes # (A) 0.4 k/uL (0-1.0); Monocytes % (A) 4 %; Neutrophils % (A) 64 %; Platelet Count 337 k/uL (150-450); RBC 4.96 m/uL (3.80-5.40); RDW 14.5 % (11.5-15.5); WBC 10.9 k/uL (3.8-10.6)
[2017-12-22 16:02] LABS: Anion Gap 8 mmol/L; Blood Urea Nitrogen 10 mg/dL (7-17); C Reactive Protein 9.2 mg/L (<10.0); Calcium 9.5 mg/dL (8.4-10.2); Carbon Dioxide 26 mmol/L (22-30); Chloride 103 mmol/L (98-107); Glucose 99 mg/dL (74-99); Potassium 4.7 mmol/L (3.5-5.1); Sodium 137 mmol/L (137-145)
[2017-12-22 20:25] LABS: Erythrocyte Sedimentation Rate 13 mm/hr (0-20)
== END | disposition home or self-care (01) ==
LOC: LABWHC1 14:40
PROVIDERS: ATTEND Internal Medicine Infectious Disease
DX: M86.9 Osteomyelitis, unspecified (principal)
CPT/HCPCS: 36415; 80048; 85025; 85652; 86140

== ENCOUNTER → 2017-12-27 | Outpatient (CLI) | payer OTHER ==
[2017-12-27 15:45] LABS: Basophils # (A) 0.1 k/uL (0-0.2); Basophils % (A) 1 %; Eosinophils # (A) 0.3 k/uL (0-0.7); Eosinophils % (A) 3 %; HCT 42.3 % (34.0-46.0); HGB 13.5 gm/dL (11.4-16.0); Lymphocytes # (A) 2.7 k/uL (1.0-4.8); Lymphocytes % (A) 30 %; MCH 28.6 pg (25.0-35.0); MCV 89.4 fL (80.0-100.0); Mean Platelet Volume 6.3; Monocytes # (A) 0.3 k/uL (0-1.0); Monocytes % (A) 3 %; Neutrophils # (A) 5.6 k/uL (1.3-7.7); Neutrophils % (A) 62 %; Platelet Count 276 k/uL (150-450); RBC 4.73 m/uL (3.80-5.40); RDW 14.6 % (11.5-15.5); WBC 9.1 k/uL (3.8-10.6)
[2017-12-27 16:11] LABS: Anion Gap 8 mmol/L; Blood Urea Nitrogen 15 mg/dL (7-17); C Reactive Protein 7.3 mg/L (<10.0); Calcium 9.4 mg/dL (8.4-10.2); Carbon Dioxide 24 mmol/L (22-30); Chloride 105 mmol/L (98-107); Glucose 92 mg/dL (74-99); Potassium 4.5 mmol/L (3.5-5.1); Sodium 137 mmol/L (137-145)
[2017-12-27 17:11] LABS: Erythrocyte Sedimentation Rate 15 mm/hr (0-20)
== END | disposition home or self-care (01) ==
LOC: LABWHC1 15:04
PROVIDERS: ATTEND Internal Medicine Infectious Disease
DX: M86.9 Osteomyelitis, unspecified (principal); M27.2 Inflammatory conditions of jaws
CPT/HCPCS: 36415; 80048; 85025; 85652; 86140

== ENCOUNTER 2018-05-06 14:34 | Emergency (ER) | payer OTHER ==
[2018-05-06 14:42] VITALS: RESP 18
[2018-05-06] MEDS ORDERED: SODIUM CHLORIDE 0.9% 1,000 ML IV STA (14:51)
--- NOTE | 2018-05-06 15:00 | ED ---
General Adult HPI - General Chief complaint: Recheck/Abnormal Lab/Rx Stated complaint: Lower Left Leg Infection (MRSA) Time Seen by Provider: 05/06/18 14:43 Source: patient, RN notes reviewed, old records reviewed Mode of arrival: ambulatory Limitations: no limitations - History of Present Illness Initial comments: Patient 47-year-old female significant past medical history for MRSA, presenting to the emergency room today with a chief complaint of a ulcerated area to the left lower leg that began 10 days ago. Patient states that she is concerned for MRSA. She went to the family doctor yesterday who dropped blood intake. She states that they were going to call and antibiotic but there is nothing at the pharmacy. Patient does admit that they talked about her being admitted to the hospital but she wanted to try outpatient therapy first. She denies any other complaints or symptoms. Patient denies any recent fever, chills , shortness of breath, chest pain, back pain, abdominal pain, nausea or vomiting , constipation or diarrhea, headaches or visual changes, or any other complaints. - Related Data Home Medications Medication Instructions Recorded Confirmed Albuterol Inhaler [Ventolin 2 puff INHALATION RT-QID PRN 10/02/13 05/06/18 Inhaler] Gabapentin [Neurontin] 800 mg PO TID 11/11/17 05/06/18 Metoprolol Tartrate [Lopressor] 50 mg PO BID 11/11/17 05/06/18 Montelukast [Singulair] 10 mg PO HS 11/11/17 05/06/18 Simvastatin [Zocor] 10 mg PO HS 11/11/17 05/06/18 amLODIPine [Norvasc] 10 mg PO HS 11/11/17 05/06/18 cloNIDine HCL [Catapres] 0.3 mg PO BID 11/11/17 05/06/18 clonazePAM [KlonoPIN] 1 mg PO DAILY PRN 11/11/17 05/06/18 ARIPiprazole [Abilify] 5 mg PO HS 05/06/18 05/06/18 Previous Rx's Medication Instructions Recorded Cephalexin [Keflex] 500 mg PO Q12HR 10 Days cap 05/06/18 Clindamycin HCl 300 mg PO Q6H #40 cap 05/06/18 Mupirocin 2% Oint [Bactroban Oint] 1 applic TOPICAL TID #1 gm 05/06/18 Allergies Allergy/AdvReac Type Severity Reaction Status Date / Time ibuprofen [From Motrin] Allergy Severe Anaphylaxis Verified 05/06/18 16:32 NSAIDS (Non-Steroidal Allergy Severe Anaphylaxis Verified 05/06/18 16:32 Anti-Inflamma Penicillins Allergy Severe Wheezing Verified 05/06/18 16:32 Sulfa (Sulfonamide Allergy Severe Anaphylaxis Verified 05/06/18 16:32 Antibiotics) vancomycin Allergy Severe Rash/Hives Verified 05/06/18 16:32 bupropion [From Wellbutrin] Allergy Unknown Verified 05/06/18 16:32 clindamycin Allergy Unknown Verified 05/06/18 16:32 doxycycline Allergy Unknown Verified 05/06/18 16:32 lurasidone [From Latuda] Allergy Unknown Verified 05/06/18 16:32 quetiapine [From Seroquel] Allergy Unknown Verified 05/06/18 16:32 Review of Systems ROS Statement: Those systems with pertinent positive or pertinent negative responses have been documented in the HPI. ROS Other: All systems not noted in ROS Statement are negative. Past Medical History Past Medical History: COPD, Deep Vein Thrombosis (DVT), Hypertension, Pulmonary Embolus (PE), Seizure Disorder Additional Past Medical History / Comment(s): pancreatitis, alcoholism for 1.5 years- recovered, PE in 2016, 2 DVT's in right leg 2015, osteomyelitis History of Any Multi-Drug Resistant Organisms: None Reported Past Surgical History: Orthopedic Surgery Additional Past Surgical History / Comment(s): knee surgery, jaw surgery- 12th top teeth removal, 24th- bottom teeth removal. Past Anesthesia/Blood Transfusion Reactions: No Reported Reaction Past Psychological History: Anxiety, PTSD Smoking Status: Current some day smoker Past Alcohol Use History: None Reported Past Drug Use History: None Reported - Past Family History Mother Family Medical History: COPD General Exam - General Exam Comments Initial Comments: General: The patient is awake and alert, in no distress, and does not appear acutely ill. Neck: The neck is supple, there is no tenderness or JVD. Musculoskeletal: Normal ROM, no tenderness. Neurological: A&O x 3. CN II-XII intact, There are no obvious motor or sensory deficits. Coordination appears grossly intact. Speech is normal. Skin: Patient does have small ulcerated area to the medial aspect of the upper left thigh. Minimal to no redness surrounding the area. No fluctuance firmness. No current drainage. Psychiatric: Cooperative, appropriate mood & affect, normal judgment. Limitations: no limitations Course Vital Signs 05/06/18 05/06/18 05/06/18 14:37 15:11 15:30 Temperature 97.9 F Pulse Rate 76 Respiratory 18 Rate Blood Pressure 134/63 197/185 O2 Sat by Pulse 98 99 97 Oximetry 05/06/18 05/06/18 16:00 16:30 Temperature Pulse Rate 70 Respiratory 18 Rate Blood Pressure 197/185 109/45 O2 Sat by Pulse 99 Oximetry Medical Decision Making - Medical Decision Making Patient reexamined at this time shows no signs of distress. She is resting comfortably. Patient does admit to history of MRSA. Patient was at her PCP office yesterday they did trend area and she states that about drainage was removed. She does admit that it is smaller today. She is concerned for infection she states she was supposed to get an antibiotic but there was nothing at the pharmacy for today. Patient will be treated with antibiotics. Blood work is unremarkable. At this time she'll be discharged home she is advised close follow-up with family doctor. Worsen. - Lab Data Result diagrams: 05/06/18 15:50 05/06/18 15:50 Lab Results 05/06/18 05/06/18 Range/Units 15:50 15:50 WBC 6.5 (3.8-10.6) k/uL RBC 4.87 (3.80-5.40) m/uL Hgb 14.6 (11.4-16.0) gm/dL Hct 44.7 (34.0-46.0) % MCV 91.7 (80.0-100.0) fL MCH 30.0 (25.0-35.0) pg MCHC 32.8 (31.0-37.0) g/dL RDW 13.4 (11.5-15.5) % Plt Count 218 (150-450) k/uL Neutrophils % 54 % Lymphocytes % 38 % Monocytes % 3 % Eosinophils % 3 % Basophils % 0 % Neutrophils # 3.5 (1.3-7.7) k/uL Lymphocytes # 2.5 (1.0-4.8) k/uL Monocytes # 0.2 (0-1.0) k/uL Eosinophils # 0.2 (0-0.7) k/uL Basophils # 0.0 (0-0.2) k/uL Sodium 141 (137-145) mmol/L Potassium 4.2 (3.5-5.1) mmol/L Chloride 110 H (98-107) mmol/L Carbon Dioxide 22 (22-30) mmol/L Anion Gap 9 mmol/L BUN 13 (7-17) mg/dL Creatinine 0.67 (0.52-1.04) mg/dL Est GFR (CKD-EPI)AfAm >90 (>60 ml/min/1.73 sqM) Est GFR (CKD-EPI)NonAf >90 (>60 ml/min/1.73 sqM) Glucose 100 H (74-99) mg/dL Calcium 9.3 (8.4-10.2) mg/dL Total Bilirubin 0.4 (0.2-1.3) mg/dL AST 20 (14-36) U/L ALT 15 (9-52) U/L Alkaline Phosphatase 87 (38-126) U/L Total Protein 7.1 (6.3-8.2) g/dL Albumin 4.1 (3.5-5.0) g/dL Disposition Clinical Impression: Abscess Disposition: HOME SELF-CARE Condition: Good Instructions: Abscess (ED) Additional Instructions: Please use medication as discussed. Please follow-up with family doctor in the next 2 days of symptoms have not improved. Please return to emergency room if the symptoms increase or worsen or for any other concerns. Prescriptions: Cephalexin [Keflex] 500 mg PO Q12HR 10 Days cap Mupirocin 2% Oint [Bactroban Oint] 1 applic TOPICAL TID #1 gm Is patient prescribed a controlled substance at d/c from ED?: No Referrals: Nonstaff,Physician [Primary Care Provider] - 1-2 days Time of Disposition: 17:01
[2018-05-06 16:04] LABS: Basophils % (A) 0 %; Eosinophils # (A) 0.2 k/uL (0-0.7); Eosinophils % (A) 3 %; HCT 44.7 % (34.0-46.0); HGB 14.6 gm/dL (11.4-16.0); Lymphocytes # (A) 2.5 k/uL (1.0-4.8); Lymphocytes % (A) 38 %; MCHC 32.8 g/dL (31.0-37.0); MCV 91.7 fL (80.0-100.0); Mean Platelet Volume 7.1; Monocytes # (A) 0.2 k/uL (0-1.0); Monocytes % (A) 3 %; Neutrophils # (A) 3.5 k/uL (1.3-7.7); Neutrophils % (A) 54 %; Platelet Count 218 k/uL (150-450); RBC 4.87 m/uL (3.80-5.40); RDW 13.4 % (11.5-15.5); WBC 6.5 k/uL (3.8-10.6)
[2018-05-06 16:29] LABS: ALT 15 U/L (9-52); AST 20 U/L (14-36); Albumin 4.1 g/dL (3.5-5.0); Alkaline Phosphatase 87 U/L (38-126); Anion Gap 9 mmol/L; Blood Urea Nitrogen 13 mg/dL (7-17); Calcium 9.3 mg/dL (8.4-10.2); Carbon Dioxide 22 mmol/L (22-30); Chloride 110 mmol/L (98-107); Glucose 100 mg/dL (74-99); Potassium 4.2 mmol/L (3.5-5.1); Sodium 141 mmol/L (137-145); Total Bilirubin 0.4 mg/dL (0.2-1.3); Total Protein 7.1 g/dL (6.3-8.2)
[2018-05-06 16:51] VITALS: BP 109/45; PULSE 70
[2018-05-06 17:08] VITALS: TEMP 98
== END 2018-05-06 17:07 | disposition home or self-care (01) ==
LOC: EC 14:34
DX: L02.416 Cutaneous abscess of left lower limb (principal); J44.9 Chronic obstructive pulmonary disease, unspecified; I10 Essential (primary) hypertension; G40.909 Epilepsy, unspecified, not intractable, without status epilepticus; F17.200 Nicotine dependence, unspecified, uncomplicated; Z86.14 Personal history of Methicillin resistant Staphylococcus aureus infection; Z79.899 Other long term (current) drug therapy; Z88.6 Allergy status to analgesic agent; Z88.0 Allergy status to penicillin; Z88.2 Allergy status to sulfonamides; Z88.1 Allergy status to other antibiotic agents; Z88.8 Allergy status to other drugs, medicaments and biological substances
CPT/HCPCS: 36415; 80053; 85025; 87040; 96360; 99284

== ENCOUNTER 2023-05-31 15:30 | Emergency (ER) | payer OTHER ==
[2023-05-31 16:13] LABS: Basophils % (A) 0 %; Eosinophils # (A) 0.2 k/uL (0-0.7); Eosinophils % (A) 2 %; HCT 41.5 % (34.0-46.0); HGB 14.1 gm/dL (11.4-16.0); Lymphocytes # (A) 3.3 k/uL (1.0-4.8); Lymphocytes % (A) 35 %; MCH 30.6 pg (25.0-35.0); MCV 89.8 fL (80.0-100.0); Mean Platelet Volume 7.6; Monocytes # (A) 0.4 k/uL (0-1.0); Monocytes % (A) 4 %; Neutrophils # (A) 5.4 k/uL (1.3-7.7); Neutrophils % (A) 57 %; Platelet Count 254 k/uL (150-450); RBC 4.62 m/uL (3.80-5.40); RDW 13.4 % (11.5-15.5); WBC 9.5 k/uL (3.8-10.6)
--- NOTE | 2023-05-31 16:13 | ED ---
Chest Pain HPI - General Chief Complaint: Chest Pain Stated Complaint: Chest Pain,Extremities Swollen Time Seen by Provider: 05/31/23 16:08 Source: patient, RN notes reviewed, old records reviewed Mode of arrival: ambulatory Limitations: no limitations - History of Present Illness Initial Comments: This is a 52-year-old female to the ER for evaluation today. Patient presented for evaluation of multiple complaints not feeling well lower extremity edema swelling occasional altered mental status cough shortness of breath chest pain abdominal pain, no travel history no sick contacts no other complaints MD Complaint: chest pain, other (Abdominal pain and lower extremity edema) -: days(s) Onset: during rest, during exertion Pain Location: substernal, epigastric Severity: moderate Severity scale (1-10): 4 Quality: tightness Consistency: constant Improves With: nothing Worsens With: nothing Anginal Symptoms: nausea, dyspnea, sense of impending doom Other Symptoms: palpitations Treatments Prior to Arrival: none - Related Data Home Medications Medication Instructions Recorded Confirmed Albuterol Inhaler [Ventolin 2 puff INHALATION RT-QID PRN 10/02/13 05/06/18 Inhaler] Gabapentin [Neurontin] 800 mg PO TID 11/11/17 05/06/18 Metoprolol Tartrate [Lopressor] 50 mg PO BID 11/11/17 05/06/18 Montelukast [Singulair] 10 mg PO HS 11/11/17 05/06/18 Simvastatin [Zocor] 10 mg PO HS 11/11/17 05/06/18 amLODIPine [Norvasc] 10 mg PO HS 11/11/17 05/06/18 cloNIDine HCL [Catapres] 0.3 mg PO BID 11/11/17 05/06/18 clonazePAM [KlonoPIN] 1 mg PO DAILY PRN 11/11/17 05/06/18 ARIPiprazole [Abilify] 5 mg PO HS 05/06/18 05/06/18 Previous Rx's Medication Instructions Recorded Cephalexin [Keflex] 500 mg PO Q12HR 10 Days cap 05/06/18 Mupirocin 2% Oint [Bactroban Oint] 1 applic TOPICAL TID #1 gm 05/06/18 clindamycin HCL [Clindamycin HCl] 300 mg PO Q6H #40 cap 05/06/18 LORazepam [Ativan] 1 mg PO TID 3 Days #9 tab 05/31/23 Allergies Allergy/AdvReac Type Severity Reaction Status Date / Time ibuprofen [From Motrin] Allergy Severe Anaphylaxis Verified 05/06/18 16:32 NSAIDS (Non-Steroidal Allergy Severe Anaphylaxis Verified 05/06/18 16:32 Anti-Inflamma Penicillins Allergy Severe Wheezing Verified 05/06/18 16:32 Sulfa (Sulfonamide Allergy Severe Anaphylaxis Verified 05/06/18 16:32 Antibiotics) vancomycin Allergy Severe Rash/Hives Verified 05/06/18 16:32 bupropion [From Wellbutrin] Allergy Unknown Verified 05/06/18 16:32 clindamycin Allergy Unknown Verified 05/06/18 16:32 doxycycline Allergy Unknown Verified 05/06/18 16:32 lurasidone [From Latuda] Allergy Unknown Verified 05/06/18 16:32 quetiapine [From Seroquel] Allergy Unknown Verified 05/06/18 16:32 Review of Systems ROS Statement: Those systems with pertinent positive or pertinent negative responses have been documented in the HPI. ROS Other: All systems not noted in ROS Statement are negative. Past Medical History Past Medical History: COPD, Deep Vein Thrombosis (DVT), Hypertension, Pulmonary Embolus (PE), Seizure Disorder Additional Past Medical History / Comment(s): pancreatitis, alcoholism for 1.5 years- recovered, PE in 2016, 2 DVT's in right leg 2015, osteomyelitis History of Any Multi-Drug Resistant Organisms: None Reported Past Surgical History: Orthopedic Surgery Additional Past Surgical History / Comment(s): knee surgery, jaw surgery- 12th top teeth removal, 24th- bottom teeth removal. Past Anesthesia/Blood Transfusion Reactions: No Reported Reaction Past Psychological History: Anxiety, PTSD Smoking Status: Current every day smoker Past Alcohol Use History: None Reported Past Drug Use History: None Reported - Past Family History Mother Family Medical History: COPD General Exam Limitations: no limitations General appearance: alert, in no apparent distress Head exam: Present: atraumatic, normocephalic, normal inspection Eye exam: Present: normal appearance, PERRL, EOMI. Absent: scleral icterus, conjunctival injection, periorbital swelling ENT exam: Present: normal exam, mucous membranes moist Neck exam: Present: normal inspection. Absent: tenderness, meningismus, lymphadenopathy Respiratory exam: Present: normal lung sounds bilaterally. Absent: respiratory distress, wheezes, rales, rhonchi, stridor Cardiovascular Exam: Present: regular rate, normal rhythm, normal heart sounds. Absent: systolic murmur, diastolic murmur, rubs, gallop, clicks GI/Abdominal exam: Present: soft, normal bowel sounds. Absent: distended, tenderness, guarding, rebound, rigid Extremities exam: Present: normal inspection, full ROM, normal capillary refill. Absent: tenderness, pedal edema, joint swelling, calf tenderness Back exam: Present: normal inspection Neurological exam: Present: alert, oriented X3, CN II-XII intact Psychiatric exam: Present: normal affect, normal mood Skin exam: Present: warm, dry, intact, normal color. Absent: rash Course Vital Signs 05/31/23 05/31/23 05/31/23 15:36 18:10 18:18 Temperature 98.6 F Pulse Rate 75 73 70 Respiratory 20 Rate Blood Pressure 126/87 Blood Pressure [Left Arm Sitting] Blood Pressure [Right Arm Sitting] O2 Sat by Pulse 97 Oximetry 05/31/23 05/31/23 05/31/23 19:31 21:00 22:11 Temperature 98.5 F Pulse Rate 100 70 Respiratory 18 18 Rate Blood Pressure 108/61 99/71 Blood Pressure 96/65 [Left Arm Sitting] Blood Pressure 88/60 [Right Arm Sitting] O2 Sat by Pulse 95 98 Oximetry 05/31/23 22:22 Temperature 98.4 F Pulse Rate Respiratory Rate Blood Pressure Blood Pressure [Left Arm Sitting] Blood Pressure [Right Arm Sitting] O2 Sat by Pulse Oximetry - Reevaluation(s) Reevaluation #1: 05/31/23 19:17 Medical record is reviewed Reevaluation #2: 05/31/23 19:17 Patient symptoms unchanged Reevaluation #3: 05/31/23 19:17 Patient informed of results and questions answered Studies Chest x-ray and ultrasound venous duplex negative for acute disease interpreted by me Reevaluation #4: Was pt. sent in by a medical professional or institution (, PA, MOTOR COACH CHAUFFEUR, urgent care, hospital, or skilled nursing...) When possible be specific @ -no Did you speak to anyone other than the patient for history (EMS, parent, family, police, friend...)? What history was obtained from this source @ -no Did you review nursing and triage notes (agree or disagree)? Why? @ -agree Are old charts reviewed (outside hosp., previous admission, EMS record, old EKG, old radiological studies, urgent care reports/EKG's, skilled nursing records)? Report findings @ -yes Differential Diagnosis (chest pain, altered mental status, abdominal pain women, abdominal pain men, vaginal bleeding, weakness, fever, dyspnea, syncope, headache, dizziness, GI bleed, back pain, seizure, CVA, palpatations, mental health, musculoskeletal)? @ -prior EKG interpreted by me (3pts min.). @ -yes X-rays interpreted by me (1pt min.). @ -yes negative for acute disease CT interpreted by me (1pt min.). @ -no U/S interpreted by me (1pt. min.). @ -Yes negative for acute disease What testing was considered but not performed or refused? (CT, X-rays, U/S, labs)? Why? @ -none What meds were considered but not given or refused? Why? @ -none Did you discuss the management of the patient with other professionals (professionals i.e. , PA, MOTOR COACH CHAUFFEUR, lab, RT, psych nurse, medical social consultant, equipment technician, teacher, jail officer, correctional casework specialist)? Give summary @ -no Was smoking cessation discussed for >3mins.? @ -no Was critical care preformed (if so, how long)? @ -no Were there social determinants of health that impacted care today? How? (Homelessness, low income, unemployed, alcoholism, drug addiction, transportation, low edu. Level, literacy, decrease access to med. care, group home, rehab)? @ -none Was there de-escalation of care discussed even if they declined (Discuss DNR or withdrawal of care, Hospice)? DNR status @ -no What co-morbidities impacted this encounter? (DM, HTN, Smoking, COPD, CAD, Cancer, CVA, ARF, Chemo, Hep., AIDS, mental health diagnosis, sleep apnea, morbid obesity)? @ -none Was patient admitted / discharged? Hospital course, mention meds given and route, prescriptions, significant lab abnormalities, going to OR and other pertinent info. @ - 52 female to ER for evaluation of chest pain, chest pain and some generalized pain and anxiety. Patient symptoms are improved here in the ER feels well and can be discharged home Discharge Undiagnosed new problem with uncertain prognosis? @ -no Drug Therapy requiring intensive monitoring for toxicity (Heparin, Nitro, Insulin, Cardizem)? @ -no Were any procedures done? @ -no Diagnosis/symptom? @ -Chest pain Acute, or Chronic, or Acute on Chronic? @ -Acute Uncomplicated (without systemic symptoms) or Complicated (systemic symptoms)? @ -Complicated Side effects of treatment? @ -no Exacerbation, Progression, or Severe Exacerbation? @ -exacerbation Poses a threat to life or bodily function? How? (Chest pain, [place], [place], pneumonia, PE, COPD, DKA, ARF, appy, cholecystitis, CVA, Diverticulitis, Homicidal, Suicidal, threat to staff... and all critical care pts) @ -yes with any cause of chest pain Chest Pain MDM - MDM 52 female to ER for evaluation of chest pain, chest pain and some generalized pain and anxiety. Patient symptoms are improved here in the ER feels well and can be discharged home Disposition Clinical Impression: Chest pain, Atypical chest pain, Weakness, Anxiety Disposition: HOME SELF-CARE Condition: Good Instructions (If sedation given, give patient instructions): Chest Pain (ED) Prescriptions: LORazepam [Ativan] 1 mg PO TID 3 Days #9 tab Is patient prescribed a controlled substance at d/c from ED?: No Referrals: Nonstaff,Physician [Primary Care Provider] - 1-2 days Time of Disposition: 21:00
[2023-05-31 16:21] LABS: ALT 8 U/L (4-34); AST 14 U/L (14-36); African American GFR (CKD) 69 (>60 ml/min/1.73 sqM); Albumin 4.4 g/dL (3.5-5.0); Alkaline Phosphatase 75 U/L (38-126); Anion Gap 12 mmol/L; Blood Urea Nitrogen 10 mg/dL (7-17); Calcium 9.5 mg/dL (8.4-10.2); Carbon Dioxide 20 mmol/L (22-30); Chloride 107 mmol/L (98-107); Glucose 85 mg/dL (74-99); Magnesium 1.8 mg/dL (1.6-2.3); Non-African American GFR(CKD) 60 (>60 ml/min/1.73 sqM); Potassium 3.4 mmol/L (3.5-5.1); Sodium 139 mmol/L (137-145); Total Bilirubin 0.8 mg/dL (0.2-1.3)
[2023-05-31 16:26] LABS: INR 1.1 (<1.2); Partial Thromboplastin Time 25.5 sec (22.0-30.0); Prothrombin Time 11.6 sec (10.0-12.5)
--- NOTE | 2023-05-31 18:05 | XR ---
EXAMINATION TYPE: XR chest 2V DATE OF EXAM: 05/31/2023 COMPARISON: None HISTORY: 52-year-old female with chest pain for 2 weeks TECHNIQUE: AP and lateral views FINDINGS: The cardiomediastinal silhouette, aorta, and pulmonary vasculature are within normal limits. Lungs an d pleural spaces are clear. ACDF hardware. IMPRESSION: No acute cardiopulmonary process.
[2023-05-31] MEDS: IPRATROPIUM-ALBUTEROL 3 ML NEB INHALATION STA (18:09)
[2023-05-31] MEDS: MORPHINE SULFATE 4 MG/ML SYRINGE IVP STA ×2 (18:41→18:50)
[2023-05-31] MEDS: DEXAMETHASONE SOD PHOSPHATE 10 MG/ML 1 ML VIAL IVP STA ×2 (18:41→18:51)
[2023-05-31] MEDS: SODIUM CHLORIDE 0.9% 500 ML 500 ML IV STA (18:50)
[2023-05-31] MEDS: SODIUM CHLORIDE 0.9% 1,000 ML IV STA (18:50)
[2023-05-31] MEDS: POTASSIUM BICARBONATE/CIT AC 20 MEQ TABLET.EFF PO ONE (18:57)
--- NOTE | 2023-05-31 19:15 | US ---
EXAMINATION TYPE: US venous doppler duplex LE BI DATE OF EXAM: 05/31/2023 6:06 PM COMPARISON: 11/13/17 CLINICAL INDICATION: Female, 52 years old with history of DVT; bilateral leg swelling x months. Hx of DVT. Not on blood thinners SIDE PERFORMED: Bilateral TECHNIQUE: The lower extremity deep venous system is examined utilizing real time linear array sonog tiffanie with graded compression, doppler sonography and color-flow sonography. VESSELS IMAGED: Common Femoral Vein Deep Femoral Vein Greater Saphenous Vein * Femoral Vein Popliteal Vein Small Saphenous Vein * Proximal Calf Veins (* superficial vessels) Right Leg: No evidence for DVT Left Leg: No evidence for DVT IMPRESSION: No evidence for DVT within the bilateral lower extremities imaged from the groin to the upper calves.
[2023-05-31 21:15] VITALS: RESP 18
[2023-05-31 22:12] VITALS: BP 99/71; PULSE 70
[2023-05-31] MEDS: LORazepam 2 MG/ML INJ IV STA (22:12)
[2023-05-31 22:40] VITALS: TEMP 98.4
== END 2023-05-31 22:22 | disposition home or self-care (01) ==
LOC: EC 15:30
DX: R07.89 Other chest pain (principal); R53.1 Weakness; F41.9 Anxiety disorder, unspecified; I10 Essential (primary) hypertension; J44.9 Chronic obstructive pulmonary disease, unspecified; F17.200 Nicotine dependence, unspecified, uncomplicated; Z79.899 Other long term (current) drug therapy; Z86.711 Personal history of pulmonary embolism; Z86.718 Personal history of other venous thrombosis and embolism; Z88.0 Allergy status to penicillin; Z88.1 Allergy status to other antibiotic agents; Z88.2 Allergy status to sulfonamides; Z88.6 Allergy status to analgesic agent; Z88.8 Allergy status to other drugs, medicaments and biological substances
CPT/HCPCS: 99285 ×2; 96374 ×2; 96375 ×3; 96361 ×2; 36415; 94640; 93005; 85379; 80164; 83880; 80053; 82140; 83690; 83735; 84484; 85025; 85610; 85730; 71046; 93970; J2060; J2270; J1100

== ENCOUNTER 2023-06-13 13:13 | Emergency (ER) | payer OTHER ==
[2023-06-13 13:39] VITALS: PULSE 76; RESP 18
--- NOTE | 2023-06-13 14:54 | ED ---
General Adult HPI - General Chief complaint: Fall Stated complaint: Fall Time Seen by Provider: 06/13/23 14:21 Source: patient, RN notes reviewed Mode of arrival: ambulatory Limitations: no limitations - History of Present Illness Initial comments: Patient is a pleasant 52-year-old female presenting to the emergency department with concerns for pain. Patient does have chronic pain and is under pain management and does have a pain contract. Patient states she was helping her mother move a couple of days ago. Patient did have a fall recently on her left hip. Patient does have chronic pain of her left hip. Patient also has chronic back pain and several other areas. Patient has had previous surgeries and plans for more surgeries coming forward. Patient also has history of rheumatoid arthritis. - Related Data Home Medications Medication Instructions Recorded Confirmed Albuterol Inhaler [Ventolin 2 puff INHALATION RT-QID PRN 10/02/13 06/13/23 Inhaler] Metoprolol Tartrate [Lopressor] 50 mg PO BID 11/11/17 06/13/23 Simvastatin [Zocor] 10 mg PO DAILY 11/11/17 06/13/23 amLODIPine [Norvasc] 10 mg PO DAILY 11/11/17 06/13/23 Divalproex [Depakote] 500 mg PO BID 06/13/23 06/13/23 HYDROcodone/APAP 10-325MG [Morton 1 tab PO TID PRN 06/13/23 06/13/23 10-325] Losartan Potassium [Cozaar] 100 mg PO DAILY 06/13/23 06/13/23 Omeprazole 20 mg PO DAILY 06/13/23 06/13/23 Allergies Allergy/AdvReac Type Severity Reaction Status Date / Time ibuprofen [From Motrin] Allergy Severe Anaphylaxis Verified 06/13/23 14:59 NSAIDS (Non-Steroidal Allergy Severe Anaphylaxis Verified 06/13/23 14:59 Anti-Inflamma Penicillins Allergy Severe Rash/Hives Verified 06/13/23 14:59 Sulfa (Sulfonamide Allergy Severe Anaphylaxis Verified 06/13/23 14:59 Antibiotics) vancomycin Allergy Severe Rash/Hives Verified 06/13/23 14:59 bupropion [From Wellbutrin] Allergy Itching Verified 06/13/23 14:59 clindamycin Allergy Rash/Hives Verified 06/13/23 14:59 doxycycline Allergy Rash/Hives Verified 06/13/23 14:59 quetiapine [From Seroquel] Allergy Anaphylaxis, Verified 06/13/23 14:59 throat swelling lurasidone [From Latuda] AdvReac muscle pain Verified 06/13/23 14:59 Review of Systems ROS Statement: Those systems with pertinent positive or pertinent negative responses have been documented in the HPI. ROS Other: All systems not noted in ROS Statement are negative. Constitutional: Denies: fever Eyes: Denies: eye pain ENT: Denies: ear pain Respiratory: Denies: cough, dyspnea Musculoskeletal: Reports: as per HPI, arthralgia Past Medical History Past Medical History: COPD, Deep Vein Thrombosis (DVT), Hypertension, Pulmonary Embolus (PE), Seizure Disorder Additional Past Medical History / Comment(s): pancreatitis, alcoholism for 1.5 years- recovered, PE in 2016, 2 DVT's in right leg 2015, osteomyelitis History of Any Multi-Drug Resistant Organisms: None Reported Past Surgical History: Orthopedic Surgery Additional Past Surgical History / Comment(s): knee surgery, jaw surgery- 12th top teeth removal, 24th- bottom teeth removal. Past Anesthesia/Blood Transfusion Reactions: No Reported Reaction Past Psychological History: Anxiety, PTSD Smoking Status: Current every day smoker Past Alcohol Use History: None Reported Past Drug Use History: None Reported - Past Family History Mother Family Medical History: COPD General Exam Limitations: no limitations General appearance: alert, in no apparent distress Head exam: Present: normocephalic Eye exam: Present: normal appearance Neck exam: Present: normal inspection Respiratory exam: Present: normal lung sounds bilaterally Cardiovascular Exam: Present: regular rate, normal rhythm Expanded Peripheral pulses: 2+: Dorsalis Pedis (R), Dorsalis Pedis (L) GI/Abdominal exam: Present: soft. Absent: tenderness Extremities exam: Present: tenderness (Left posterior and lateral) Neurological exam: Present: alert. Absent: motor sensory deficit Expanded Sensory exam: Lower Extremity Light Touch: Normal Motor strength exam: RUE: 5, LUE: 5, RLE: 5, LLE: 5 Psychiatric exam: Present: normal affect, normal mood Skin exam: Present: normal color Course Vital Signs 06/13/23 06/13/23 13:15 15:18 Temperature 98.7 F 98.4 F Pulse Rate 76 76 Respiratory 18 18 Rate Blood Pressure 138/69 120/90 O2 Sat by Pulse 95 96 Oximetry Medical Decision Making - Medical Decision Making Was pt. sent in by a medical professional or institution (, KELLIE, FIXED ROUTE OPERATOR, urgent care, hospital, or correction...) When possible be specific @ -No Did you speak to anyone other than the patient for history (EMS, parent, family, police, friend...)? What history was obtained from this source @ -No Did you review nursing and triage notes (agree or disagree)? Why? @ -I reviewed and agree with nursing and triage notes Were old charts reviewed (outside hosp., previous admission, EMS record, old EKG, old radiological studies, urgent care reports/EKG's, correction records)? Report findings @ -No old charts were reviewed Differential Diagnosis (chest pain, altered mental status, abdominal pain women, abdominal pain men, vaginal bleeding, weakness, fever, dyspnea, syncope, headache, dizziness, GI bleed, back pain, seizure, CVA, palpatations, mental health, musculoskeletal)? @ -Differential Musculoskeletal Muscular strain, contusion, ligament sprain, fracture, arthritis, septic arthritis, bursitis, cellulitis, muscle spasm, nerve compression, DVT, arterial occlusion, herpes zoster, electrolyte abnormality, tumor.... This is not meant to be in all inclusive list EKG interpreted by me (3pts min.). @ -As above X-rays interpreted by me (1pt min.). @ -X-ray left hip and pelvis shows arthralgia CT interpreted by me (1pt min.). @ -None done U/S interpreted by me (1pt. min.). @ -None done What testing was considered but not performed or refused? (CT, X-rays, U/S, labs)? Why? @ -None What meds were considered but not given or refused? Why? @ -None Did you discuss the management of the patient with other professionals (professionals i.e. , KELLIE, FIXED ROUTE OPERATOR, lab, RT, psych nurse, high school social studies teacher, aviation electrician, teacher, juvenile justice officer, caser shoe parts)? Give summary @ -No Was smoking cessation discussed for >3mins.? @ -No Was critical care preformed (if so, how long)? @ -No Were there social determinants of health that impacted care today? How? (Homelessness, low income, unemployed, alcoholism, drug addiction, transportation, low edu. Level, literacy, decrease access to med. care, alf, rehab)? @ -No Was there de-escalation of care discussed even if they declined (Discuss DNR or withdrawal of care, Hospice)? DNR status @ -No What co-morbidities impacted this encounter? (DM, HTN, Smoking, COPD, CAD, Cancer, CVA, ARF, Chemo, Hep., AIDS, mental health diagnosis, sleep apnea, morbid obesity)? @ -Chronic pain and chronic Pain Was patient admitted / discharged? Hospital course, mention meds given and route, prescriptions, significant lab abnormalities, going to OR and other pertinent info. @ -Patient reevaluated and updated. Patient will be discharged. Patient request medication for anxiety as well. Undiagnosed new problem with uncertain prognosis? @ -No Drug Therapy requiring intensive monitoring for toxicity (Heparin, Nitro, Insulin, Cardizem)? @ -No Were any procedures done? @ -No Diagnosis/symptom? @ -Hip contusion Acute, or Chronic, or Acute on Chronic? @ -Acute Uncomplicated (without systemic symptoms) or Complicated (systemic symptoms)? @ -Default Side effects of treatment? @ -No Exacerbation, Progression, or Severe Exacerbation? @ -No Poses a threat to life or bodily function? How? (Chest pain, [place], [place], pneumonia, PE, COPD, DKA, ARF, appy, cholecystitis, CVA, Diverticulitis, Homicidal, Suicidal, threat to staff... and all critical care pts) @ -No Disposition Clinical Impression: Contusion, hip Disposition: HOME SELF-CARE Condition: Stable Instructions (If sedation given, give patient instructions): Hip Contusion (ED) Additional Instructions: Please do follow-up with your primary care physician and pain doctor in the next couple days for recheck. Return for increased pain, weakness, worsening or changing symptoms or other concerns. Is patient prescribed a controlled substance at d/c from ED?: No Referrals: Nonstaff,Physician [Primary Care Provider] - 1-2 days Laci Hagan MD [STAFF PHYSICIAN] - 1-2 days Time of Disposition: 15:31
[2023-06-13] MEDS: HYDROmorphone 1 MG/ML 1 ML SYRINGE IM STA (15:06)
--- NOTE | 2023-06-13 15:06 | XR ---
EXAMINATION TYPE: XR Hip 2 views LT and AP Pelvis DATE OF EXAM: 06/13/2023 Comparison: None Clinical History: 52-year-old female with pain after fall Findings: SI joints appear symmetric and intact as does the pubic symphysis. There is severe degenerative escamilla e at the left hip and moderate to severe at the right hip with significant loss of superolateral weig ht bearing joint space. [id number] abutment particularly on the left with marginal spurring and sub chondral sclerosis. No acute fracture, subluxation, dislocation. Impression: Severe left and moderate to severe right hip OA. [id number] change superolateral weightbearing aspe ct of the left hip. No acute fracture seen.
[2023-06-13] MEDS: LORazepam 1 MG TAB PO STA (15:35)
[2023-06-13 15:42] VITALS: BP 120/90; TEMP 98.4
== END 2023-06-13 15:42 | disposition home or self-care (01) ==
LOC: EC 13:13
DX: S70.02XA Contusion of left hip, initial encounter (principal); J44.9 Chronic obstructive pulmonary disease, unspecified; I10 Essential (primary) hypertension; F41.9 Anxiety disorder, unspecified; F17.200 Nicotine dependence, unspecified, uncomplicated; Z79.899 Other long term (current) drug therapy; Z88.6 Allergy status to analgesic agent; Z88.5 Allergy status to narcotic agent; Z88.2 Allergy status to sulfonamides; Z88.8 Allergy status to other drugs, medicaments and biological substances; W19.XXXA Unspecified fall, initial encounter
CPT/HCPCS: 99283 ×2; 73502; 96372; J1170

== ENCOUNTER 2023-06-29 00:40 | Observation (INO) | payer OTHER ==
--- NOTE | 2023-06-29 01:19 | ED ---
Chest Pain HPI - General Chief Complaint: Chest Pain Stated Complaint: Chest Pain Time Seen by Provider: 06/29/23 00:43 Source: patient Mode of arrival: EMS - History of Present Illness Initial Comments: 57-year-old female presenting to the ED with a chief complaint of chest pain. Patient reports that she was at pain management earlier and received a shot of Ativan. Patient states when she returned home she took a nap and upon waking from a nap woke up with pain on the left side of her chest. Patient states that this woke her from sleep. Pain radiates to her neck and her left arm. Patient also notes over the past week she has been more tired than usual. Denies abdominal pain. Denies blood in the stool. Provided 324 aspirin by EMS prior to arrival. Declined nitro as she reports that this gives her a terrible headache. No other complaints at this time. - Related Data Home Medications Medication Instructions Recorded Confirmed Albuterol Inhaler [Ventolin 2 puff INHALATION RT-QID PRN 10/02/13 06/13/23 Inhaler] Metoprolol Tartrate [Lopressor] 50 mg PO BID 11/11/17 06/13/23 Simvastatin [Zocor] 10 mg PO DAILY 11/11/17 06/13/23 amLODIPine [Norvasc] 10 mg PO DAILY 11/11/17 06/13/23 Divalproex [Depakote] 500 mg PO BID 06/13/23 06/13/23 HYDROcodone/APAP 10-325MG [[place] 1 tab PO TID PRN 06/13/23 06/13/23 10-325] Losartan Potassium [Cozaar] 100 mg PO DAILY 06/13/23 06/13/23 Omeprazole 20 mg PO DAILY 06/13/23 06/13/23 Allergies Allergy/AdvReac Type Severity Reaction Status Date / Time ibuprofen [From Motrin] Allergy Severe Anaphylaxis Verified 06/29/23 00:46 NSAIDS (Non-Steroidal Allergy Severe Anaphylaxis Verified 06/29/23 00:46 Anti-Inflamma Penicillins Allergy Severe Rash/Hives Verified 06/29/23 00:46 Sulfa (Sulfonamide Allergy Severe Anaphylaxis Verified 06/29/23 00:46 Antibiotics) vancomycin Allergy Severe Rash/Hives Verified 06/29/23 00:46 bupropion [From Wellbutrin] Allergy Itching Verified 06/29/23 00:46 clindamycin Allergy Rash/Hives Verified 06/29/23 00:46 doxycycline Allergy Rash/Hives Verified 06/29/23 00:46 quetiapine [From Seroquel] Allergy Anaphylaxis, Verified 06/29/23 00:46 throat swelling lurasidone [From Latuda] AdvReac muscle pain Verified 06/29/23 00:46 Review of Systems ROS Statement: Those systems with pertinent positive or pertinent negative responses have been documented in the HPI. ROS Other: All systems not noted in ROS Statement are negative. Past Medical History Past Medical History: Chest Pain / Angina, COPD, Deep Vein Thrombosis (DVT), Hypertension, Pulmonary Embolus (PE), Seizure Disorder Additional Past Medical History / Comment(s): pancreatitis, alcoholism for 1.5 years- recovered, PE in 2016, 2 DVT's in right leg 2015, osteomyelitis History of Any Multi-Drug Resistant Organisms: None Reported Past Surgical History: Orthopedic Surgery Additional Past Surgical History / Comment(s): knee surgery, jaw surgery- 12th top teeth removal, 24th- bottom teeth removal. Past Anesthesia/Blood Transfusion Reactions: No Reported Reaction Past Psychological History: Anxiety, Bipolar, PTSD Smoking Status: Current every day smoker, Vaper Past Alcohol Use History: None Reported Past Drug Use History: None Reported - Past Family History Mother Family Medical History: COPD General Exam General appearance: alert, in no apparent distress Neck exam: Present: normal inspection Respiratory exam: Present: normal lung sounds bilaterally, other (Left chest wall tenderness to palpation.) Cardiovascular Exam: Present: regular rate GI/Abdominal exam: Present: soft, normal bowel sounds. Absent: distended, tenderness, guarding, rebound, rigid Neurological exam: Present: alert, oriented X3 Skin exam: Present: warm, dry Course Vital Signs 06/29/23 06/29/23 01:01 01:40 Temperature 97.6 F 97.5 F L Pulse Rate 88 85 Respiratory 22 20 Rate Blood Pressure 80/38 111/98 O2 Sat by Pulse 97 97 Oximetry Chest Pain MDM - MDM Was pt. sent in by a medical professional or institution (, PA, LEAD JAVA SOFTWARE ENGINEER, urgent care, hospital, or snf...) When possible be specific @ -No Did you speak to anyone other than the patient for history (EMS, parent, family, police, friend...)? What history was obtained from this source @ -No Did you review nursing and triage notes (agree or disagree)? Why? @ -I reviewed and agree with nursing and triage notes Were old charts reviewed (outside hosp., previous admission, EMS record, old EKG, old radiological studies, urgent care reports/EKG's, snf records)? Report findings @ -No old charts were reviewed Differential Diagnosis (chest pain, altered mental status, abdominal pain women, abdominal pain men, vaginal bleeding, weakness, fever, dyspnea, syncope, headache, dizziness, GI bleed, back pain, seizure, CVA, palpatations, mental h ealth, musculoskeletal)? @ -Differential Chest Pain: Stable Angina, Unstable Angina, STEMI, NSTEMI Aortic Dissection, Pneumothorax, Musculoskeletal, Esophageal Spasm GERD, Cholecystitis, Pancreatitis, Zoster, this is not meant to be an all-inclusive list. EKG interpreted by me (3pts min.). @ -EKG interpreted by me showing a sinus rhythm with nonspecific findings at a rate of 88 bpm. TN 158, QRS 91, QT/QTc 378/424. X-rays interpreted by me (1pt min.). @ -Chest x-ray pending at this time. CT interpreted by me (1pt min.). @ -None done U/S interpreted by me (1pt. min.). @ -None done What testing was considered but not performed or refused? (CT, X-rays, U/S, labs)? Why? @ -None What meds were considered but not given or refused? Why? @ -None Did you discuss the management of the patient with other professionals (professionals i.e. , PA, LEAD JAVA SOFTWARE ENGINEER, lab, RT, psych nurse, social insurance administrator, measuring machine operator, teacher, railway patrol officer, rifle case repairer)? Give summary @ -No Was smoking cessation discussed for >3mins.? @ -No Was critical care preformed (if so, how long)? @ -No Were there social determinants of health that impacted care today? How? (Homelessness, low income, unemployed, alcoholism, drug addiction, transportation, low edu. Level, literacy, decrease access to med. care, alf, rehab)? @ -No Was there de-escalation of care discussed even if they declined (Discuss DNR or withdrawal of care, Hospice)? DNR status @ -No What co-morbidities impacted this encounter? (DM, HTN, Smoking, COPD, CAD, Cancer, CVA, ARF, Chemo, Hep., AIDS, mental health diagnosis, sleep apnea, morbid obesity)? @ -Hypertension Was patient admitted / discharged? Hospital course, mention meds given and route, prescriptions, significant lab abnormalities, going to OR and other pertinent info. @ -Admission 52-year-old female presenting to the ED with complaints of chest pain. Was seen at pain management earlier today and was given some Ativan. States she went home and took a nap and reports that she woke up from his nap secondary to pain on the left side of her chest which seems to radiate to her left arm and to the left side of her neck. EKG at this time shows a sinus rhythm with nonspecific findings. Chest x-ray is pending at this time. Laboratory studies reviewed. CBC CMP largely unremarkable. Initial troponin within normal limits however was found to be at 0.030. Prior troponin was found to be undetectable at previous visit. Patient will be admitted to observation with consult to cardiology to rule out ACS. Discussed plan of care with patient who is in agreement. Undiagnosed new problem with uncertain prognosis? @ -No Drug Therapy requiring intensive monitoring for toxicity (Heparin, Nitro, Insulin, Cardizem)? @ -No Were any procedures done? @ -No Diagnosis/symptom? @ -Chest pain Acute, or Chronic, or Acute on Chronic? @ -Acute Uncomplicated (without systemic symptoms) or Complicated (systemic symptoms)? @ -Uncomplicated Side effects of treatment? @ -No Exacerbation, Progression, or Severe Exacerbation? @ -No Poses a threat to life or bodily function? How? (Chest pain, [place], [place], pneumonia, PE, COPD, DKA, ARF, appy, cholecystitis, CVA, Diverticulitis, Homicidal, Suicidal, threat to staff... and all critical care pts) @ -Possibly, chest pain Disposition Clinical Impression: Chest pain Disposition: ADMITTED IP TO THIS HOSP Condition: Good Referrals: Nonstaff,Physician [Primary Care Provider] - 1-2 days Time of Disposition: 02:30
[2023-06-29 01:54] LABS: ALT 11 U/L (4-34); AST 37 U/L (14-36); African American GFR (CKD) >90 (>60 ml/min/1.73 sqM); Albumin 4.2 g/dL (3.5-5.0); Alkaline Phosphatase 57 U/L (38-126); Anion Gap 10 mmol/L; Blood Urea Nitrogen 17 mg/dL (7-17); Calcium 8.3 mg/dL (8.4-10.2); Carbon Dioxide 21 mmol/L (22-30); Chloride 111 mmol/L (98-107); Glucose 93 mg/dL (74-99); Magnesium 1.9 mg/dL (1.6-2.3); Non-African American GFR(CKD) >90 (>60 ml/min/1.73 sqM); Sodium 142 mmol/L (137-145); Total Bilirubin 1.2 mg/dL (0.2-1.3); Total Protein 7.3 g/dL (6.3-8.2)
[2023-06-29 03:08] LABS: Basophils % (A) 0 %; Eosinophils # (A) 0.1 k/uL (0-0.7); Eosinophils % (A) 1 %; HCT 42.9 % (34.0-46.0); HGB 14.1 gm/dL (11.4-16.0); Lymphocytes # (A) 2.9 k/uL (1.0-4.8); Lymphocytes % (A) 28 %; MCH 30.2 pg (25.0-35.0); MCHC 32.7 g/dL (31.0-37.0); MCV 92.4 fL (80.0-100.0); Mean Platelet Volume 7.3; Monocytes # (A) 0.5 k/uL (0-1.0); Monocytes % (A) 5 %; Neutrophils # (A) 6.6 k/uL (1.3-7.7); Neutrophils % (A) 64 %; Platelet Count 188 k/uL (150-450); RBC 4.65 m/uL (3.80-5.40); RDW 14.3 % (11.5-15.5); WBC 10.3 k/uL (3.8-10.6)
[2023-06-29] MEDS: HYDROcodone/APAP 10-325MG 1 EACH TAB PO ONE (03:14)
[2023-06-29] MEDS ORDERED: NALOXONE 0.4 MG/ML 1 ML VIAL IV PRN (03:15)
[2023-06-29] MEDS ORDERED: ACETAMINOPHEN TAB 325 MG TAB PO PRN (03:15)
[2023-06-29] MEDS ORDERED: ONDANSETRON 4 MG/2 ML VIAL IVP PRN (03:15)
[2023-06-29] MEDS: ONDANSETRON 4 MG/2 ML VIAL IVP STA (03:37)
[2023-06-29] MEDS: SODIUM CHLORIDE 0.9% 1,000 ML IV SCH (03:37)
[2023-06-29 04:04] LABS: Prothrombin Time 10.6 sec (10.0-12.5)
--- NOTE | 2023-06-29 04:36 | XR ---
EXAM: XR Chest, 2 Views CLINICAL HISTORY: ITS.REASON XR Reason: Chest Pain TECHNIQUE: Frontal and lateral views of the chest. COMPARISON: No relevant prior studies available. FINDINGS: Lungs: No consolidation or mass. Pleural space: No effusion. Heart: No cardiomegaly. Bones/joints: No acute findings. IMPRESSION: No acute cardiopulmonary process.
[2023-06-29] MEDS: HYDROmorphone 0.5 MG/0.5 ML SYRINGE IVP PRN (04:42)
[2023-06-29] MEDS ORDERED: CAFFEINE CITRATE 60 MG/3 ML VIAL IV PRN (07:49)
[2023-06-29] MEDS ORDERED: REGADENOSON 0.4 MG/5 ML SYRINGE IV PRN (07:49)
[2023-06-29] MEDS ORDERED: AMINOPHYLLINE 500 MG/20 ML VIAL IV PRN (07:49)
[2023-06-29 08:47] VITALS: RESP 18; TEMP 97.7
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
--- NOTE | 2023-06-29 10:31 | CA ---
Transthoracic Echo Report Name: Leia Monteiro Age: 52 Gender: F : 1970 Exam Date: 06/29/2023 08:14 Exam Location: [facility] Ht (in): 63 Wt (lb): 191 Ordering Physician: Teresa Reeves Attending/Referring Phys: [id number], Leandro Director Of Event Management Ara Watts RDCS Procedure CPT: Indications: LV function, CP Cardiac Hx: Technical Quality: Good Contrast 1: Total Dose (mL): Contrast 2: Total Dose (mL): MEASUREMENTS (Male / Female) Normal Values 2D ECHO LV Diastolic Diameter PLAX 4.9 cm 4.2 - 5.9 / 3.9 - 5.3 cm LV Systolic Diameter PLAX 3.3 cm IVS Diastolic Thickness 1.3 cm 0.6 - 1.0 / 0.6 - 0.9 cm LVPW Diastolic Thickness 1.2 cm 0.6 - 1.0 / 0.6 - 0.9 cm LV Relative Wall Thickness 0.5 RV Internal Dim ED PLAX 3.3 cm LA Systolic Diameter LX 3.3 cm 3.0 - 4.0 / 2.7 - 3.8 cm LV Diastolic Volume MOD BP 77.9 cm??? 67 - 155 / 56 - 104 cm??? LV Systolic Volume MOD BP 34.0 cm??? - 58 / 19 - 49 cm??? LV Ejection Fraction MOD BP 56.4 % >= 55 % LV Cardiac Index MOD BP 1647.0 cm???/min???m??? LV Diastolic Volume MOD 4C 81.1 cm??? LV Systolic Volume MOD 4C 35.2 cm??? LV Ejection Fraction MOD 4C 56.7 % LV Cardiac Index MOD 4C 1725.2 cm???/min???m??? LV Diastolic Length 4C 7.3 cm LV Systolic Length 4C 6.3 cm LV Diastolic Volume MOD 2C 72.2 cm??? LV Systolic Volume MOD 2C 27.0 cm??? LV Ejection Fraction MOD 2C 62.5 % LV Cardiac Index MOD 2C 1694.4 cm???/min???m??? LV Diastolic Length 2C 7.7 cm LV Systolic Length 2C 5.1 cm LA Volume 48.1 cm??? 18 - 58 / 22 - 52 cm??? LA Volume Index 24.0 cm???/m??? 16 - 28 cm???/m??? M-MODE Aortic Root Diameter MM 3.4 cm MV E Point Septal Separation 0.4 cm AV Cusp Separation MM 2.2 cm DOPPLER AV Peak Velocity 128.4 cm/s AV Peak Gradient 6.6 mmHg MV Area PHT 3.3 cm??? Mitral E Point Velocity 82.3 cm/s Mitral A Point Velocity 71.6 cm/s Mitral E to A Ratio 1.2 MV Deceleration Time 229.4 ms TR Peak Velocity 209.5 cm/s TR Peak Gradient 17.5 mmHg Right Ventricular Systolic Press 22.5 mmHg FINDINGS Left Ventricle Left ventricular ejection fraction is estimated at 55-60 %. Left ventricular cavity size normal. Mildly increased septal wall thickness. Mildly increased posterior wall thickness. Normal left ventricular wall motion. Right Ventricle Normal right ventricular size. Right ventricular systolic pressure within normal limits. Right Atrium Normal right atrial size. Left Atrium Normal left atrial size. Mitral Valve Structurally normal mitral valve. No mitral stenosis, regurgitation or prolapse. Aortic Valve Trileaflet aortic valve. No aortic valve stenosis or regurgitation. Tricuspid Valve Structurally normal tricuspid valve. Mild tricuspid regurgitation. Pulmonic Valve Structurally normal pulmonic valve. No pulmonic regurgitation. Pericardium No pericardial effusion. Aorta Normal size aortic root and proximal ascending aorta. CONCLUSIONS Normal LV systolic function Previewed by: Dr. Arnie Shelley MD (Electronically Signed) Final Date: 29 June 2023 10:30
[2023-06-29 11:21] LABS: Chol/HDL Ratio 2.13 Ratio; LDL Cholesterol,Calculated 42.4 mg/dL (0.0-131.0)
[2023-06-29] MEDS: METOPROLOL TARTRATE 50 MG TAB PO SCH (11:59)
[2023-06-29] MEDS: LOSARTAN 50 MG TAB PO SCH (11:59)
[2023-06-29 12:18] VITALS: BP 121/84; PULSE 83
--- NOTE | 2023-06-29 12:36 | NM ---
EXAMINATION TYPE: NM stress lexiscan cardiolite DATE OF EXAM: 06/29/2023 COMPARISON: NONE CLINICAL INDICATION: Female, 52 years old with history of CP; TECHNIQUE: After the intravenous administration of 10.1 mCi Tc 99m Sestamibi - Cardiolite resting SP ECT images acquired 75 minutes post injection. The patient received 0.4mg Lexiscan, 25 mCi Tc 99m Sestamibi - Stress images obtained 38 minutes post injection FINDINGS: Review of stress and rest SPECT images demonstrates a small to moderate sized fixed perfusion defect along the mid to apical anteroseptal wall. As the defect is larger on rest, this may represent attenu ation artifact. No distinct reversibility is seen. Gated analysis shows some limited augmentation of the anteroseptal wall. Normal wall motion throughout other portions of the left ventricle with an es timated left ventricular ejection fraction of 61 %. TID is calculated at 0.8, within normal limits. IMPRESSION: Correlate for old infarct mid to apical anteroseptal wall. Some of this perfusion defect may relate t o attenuation artifact as the abnormality is larger on rest. Clinically correlate. No discrete revers ibility is seen.
--- NOTE | 2023-06-29 12:38 | CA ---
Lexiscan Nuclear Stress Test Report Name: Leia Monteiro Exam Date: 06/29/2023 10:34 Exam Location: [facility] Ht (in): 63 Wt (lb): 191 BSA: 1.90 Ordering Phys: Teresa Reeves Referring Phys: GREG Technologist: ALONZO Age: 52 Gender: F : 1970 Procedure CPT: Indications: Reflex order-Stress test ICD-10 Codes: Patient History: Chest pain, short of breath and palpitations Medications: Meds past 24 hrs: Pretest Chest Pain: STRESS TEST Lexiscan Protocol Exercise Duration (min:sec): 02:[address] Depressions (mm): Angina Score: Zavala Score: Resting HR (bpm): 70 Peak HR (bpm): 95 Resting BP (mmHg): 133 / 94 Peak BP (mmHg): 142 / 82 MPHR: 170 Target HR: 145 % MPHR: 56 METS: 1.0 Total Dose: Peak Dose: Atropine: Double Product: 29701 BP Response: Stress Termination: Infusion complete Stress Symptoms: No chest pain or symptoms Stress Summary: ECG ANALYSIS Resting ECG: Stress ECG: CONCLUSIONS Nondiagnostic stress testing Dr. Arnie Shelley MD (Electronically Signed) Final Date: 29 June 2023 12:38
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
[2023-06-29 14:34] VITALS: BMI 33.8
[2023-06-29] MEDS ORDERED: DIVALPROEX ER 500 MG TAB.ER.24H PO SCH (15:12)
[2023-06-29] MEDS ORDERED: VENLAFAXINE HCL ER 37.5 MG CAP PO SCH (15:15)
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
[2023-06-29] MEDS ORDERED: OLANZapine 2.5 MG TAB PO SCH (21:00)
[2023-06-29] MEDS ORDERED: ATORVASTATIN 10 MG TAB PO SCH (21:00)
--- NOTE | 2023-07-01 09:33 | P.DS ---
Providers Date of admission: 06/29/23 03:18 Expected date of discharge: 07/01/23 Attending physician: Natanael Mcmullen Consults: 06/29/23 04:07 Consult Physician Routine Consulting Provider: Nando Fletcher Consult Reason/Comments: Depression Do you want consulting provider notified?: Yes, Notify in am Primary care physician: Physician Nonstaff Hospital Course: Discharge diagnoses; Chest pain Hypertension Hyperlipidemia Rheumatoid arthritis Anxiety Depression Hospital course; patient is a 52-year-old female with a past medical history significant for rheumatoid arthritis, hypertension, hyperlipidemia, anxiety, and depression who was brought to the ER for chest pain. Patient stated that she was all right last night when while she was sleeping she was awakened up from sleep because of chest pain that involved her left side. Chest pain was pressure-like, constant, radiating to her neck and left arm. There was no aggravating or relieving factor associated with chest pain. There is no complaint of shortness of breath. Patient did notice that over the last week she has been more tired than normal. There was no complaint of any nausea, vomiting abdominal pain. There is no complaint orthopnea or PND. Denies any swelling of feet. Because of chest pain, patient came to the ER Initial lab work done in the ER showed WBC 10.3, hemoglobin 14.1, platelet count 188, sodium 142, potassium 5, BUN 17, creatinine 0.59, calcium 8.3, AST 37, ALT 11, Influenza A not detected Influenza B not detected RSV not detected COVID-19 not detected EKG done in the ER showed heart rate of 88 , no ST segment elevation or depression seen, no T-wave inversions seen. Chest x-ray done in the ER showed no acute cardiopulmonary process Patient admitted to internal medicine service Patient was evaluated by cardiology, they recommend doing stress test, stress testing showed old infarct mild apical anteroseptal wall, some of the perfusion defect may relate to attenuation artifact, cardiology reviewed the stress test and cleared the patient for discharge. Patient also seen by psychiatry, they recommended adjusting patient medication and monitoring her overnight. Patient refused to stay in the hospital any longer and left AGAINST MEDICAL ADVICE. Patient was counseled against leaving AGAINST MEDICAL ADVICE and staying in the hospital and getting her medication adjusted but she refused. Dictation was produced using Add[employer] software. please excuse any grammatical, word or spelling errors. Patient Condition at Discharge: Stable Plan - Discharge Summary Discharge Rx Participant: No New Discharge Prescriptions: No Action Albuterol Inhaler [Ventolin Inhaler] 2 puff INHALATION RT-QID PRN PRN Reason: Shortness Of Breath amLODIPine [Norvasc] 10 mg PO DAILY Simvastatin [Zocor] 10 mg PO HS Metoprolol Tartrate [Lopressor] 50 mg PO BID Losartan Potassium [Cozaar] 100 mg PO DAILY HYDROcodone/APAP 10-325MG [[place] 10-325] 1 tab PO TID PRN PRN Reason: Pain LORazepam [Ativan] 1 mg PO BID PRN PRN Reason: Anxiety cloNIDine HCL [Catapres] 0.1 mg PO DAILY PRN PRN Reason: Blood Pressure - High Divalproex [Depakote] 500 mg PO BID Omeprazole 40 mg PO DAILY lidocaine HCL [lidocaine HCL Viscous] 2.5 - 5 ml PO Q4H PRN PRN Reason: Pain Discharge Medication List Albuterol Inhaler [Ventolin Inhaler] 2 puff INHALATION RT-QID PRN 10/02/13 [History] Metoprolol Tartrate [Lopressor] 50 mg PO BID 11/11/17 [History] Simvastatin [Zocor] 10 mg PO HS 11/11/17 [History] amLODIPine [Norvasc] 10 mg PO DAILY 11/11/17 [History] Divalproex [Depakote] 500 mg PO BID 06/13/23 [History] HYDROcodone/APAP 10-325MG [[place] 10-325] 1 tab PO TID PRN 06/13/23 [History] Losartan Potassium [Cozaar] 100 mg PO DAILY 06/13/23 [History] Omeprazole 40 mg PO DAILY 06/13/23 [History] LORazepam [Ativan] 1 mg PO BID PRN 06/29/23 [History] cloNIDine HCL [Catapres] 0.1 mg PO DAILY PRN 06/29/23 [History] lidocaine HCL [lidocaine HCL Viscous] 2.5 - 5 ml PO Q4H PRN 06/29/23 [History] Follow up Appointment(s)/Referral(s): Nonstaff,Physician [Primary Care Provider] - 1-2 days Discharge Disposition: LEFT AGAINST MEDICAL ADVICE
== END 2023-06-29 16:14 | disposition left against medical advice (07) ==
LOC: EC 00:40 → 6NMEDSUR 03:18
PROVIDERS: ADMIT Hospitalist; ATTEND Hospitalist
DX: R07.9 Chest pain, unspecified (principal); I10 Essential (primary) hypertension; E78.5 Hyperlipidemia, unspecified; M06.9 Rheumatoid arthritis, unspecified; F41.9 Anxiety disorder, unspecified; F31.9 Bipolar disorder, unspecified; J44.9 Chronic obstructive pulmonary disease, unspecified; F43.10 Post-traumatic stress disorder, unspecified; F17.290 Nicotine dependence, other tobacco product, uncomplicated; Z86.711 Personal history of pulmonary embolism; Z86.718 Personal history of other venous thrombosis and embolism; Z11.52 Encounter for screening for COVID-19; Z79.899 Other long term (current) drug therapy; Z88.6 Allergy status to analgesic agent; Z88.0 Allergy status to penicillin; Z88.2 Allergy status to sulfonamides; Z88.1 Allergy status to other antibiotic agents; Z53.29 Procedure and treatment not carried out because of patient's decision for other reasons
CPT/HCPCS: 96376; 96375; 96374; 99285; 36415; 93005; 93017; 93306; 80061; 80053; 83735; 84484; 85025; 85610; 85730; 83036; 87636; 71046; 78452; G0378; A9500; J2405; J2785; J1170

== ENCOUNTER 2024-08-24 17:30 | Emergency (ER) | payer OTHER ==
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
[2024-08-24 18:08] LABS: Basophils # (A) 0.03 10*3/uL (0.00-0.10); Basophils % (A) 0.6 %; Eosinophils # (A) 0.14 10*3/uL (0.04-0.35); Eosinophils % (A) 2.6 %; HCT 35.5 % (37.2-46.3); Lymphocytes # (A) 2.36 10*3/uL (0.90-5.00); Lymphocytes % (A) 43.5 %; MCH 30.2 pg (27.0-32.0); MCHC 33.8 g/dL (32.0-37.0); MCV 89.2 fL (80.0-97.0); Mean Platelet Volume 10.2 fL (9.5-12.2); Monocytes # (A) 0.42 10*3/uL (0.20-1.00); Monocytes % (A) 7.7 %; Neutrophils # (A) 2.46 10*3/uL (1.80-7.70); Neutrophils % (A) 45.4 %; Platelet Count 156 10*3/uL (140-440); RBC 3.98 10*6/uL (4.10-5.20); RDW 15.6 % (11.5-14.5); WBC 5.42 10*3/uL (4.50-10.00)
--- NOTE | 2024-08-24 18:21 | XR ---
EXAMINATION TYPE: XR chest 2V DATE OF EXAM: 08/24/2024 6:14 PM COMPARISON: Multiple prior chest radiograph, most recently dated 06/29/2023. CLINICAL INDICATION: Female, 53 years old with history of Chest Pain; [facility] TECHNIQUE: XR chest 2V Frontal and lateral views of the chest. FINDINGS: Lungs/Pleura: There is no evidence of pleural effusion, focal consolidation, or pneumothorax. Pulmonary vascularity: Unremarkable. Heart/mediastinum: Cardiomediastinal silhouette is unremarkable. Musculoskeletal: No acute osseous pathology. Other findings: None IMPRESSION: No acute cardiopulmonary disease/process. [facility], , 08/24/2024 6:19 PM
--- NOTE | 2024-08-24 18:23 | XR ---
EXAMINATION TYPE: XR Hip Bilateral and AP pelvis DATE OF EXAM: 08/24/2024 6:14 PM COMPARISON: Previous radiograph dated 226 and 24. CLINICAL INDICATION: Female, 53 years old with history of fall; [facility], pain TECHNIQUE: XR Hip Bilateral and AP pelvis; hip was examined in the frontal and lateral projections an d a AP pelvis. FINDINGS: No acute fracture or dislocation. Severe degenerative osteoarthritis of the right hip. Left hip arthroplasty without periprosthetic lucency or other acute hardware complication. Lumbosacral sp ine degenerative changes. IMPRESSION: No acute fracture or dislocation. [facility], , 08/24/2024 6:21 PM
[2024-08-24 18:25] LABS: Prothrombin Time 10.6 sec (10.0-12.5)
[2024-08-24 18:29] LABS: ALT 10 U/L (4-34); AST 17 U/L (14-36); African American GFR (CKD) >90 (>60 ml/min/1.73 sqM); Albumin 3.5 g/dL (3.5-5.0); Alkaline Phosphatase 69 U/L (38-126); Anion Gap 10 mmol/L; Blood Urea Nitrogen 13 mg/dL (7-17); Calcium 8.4 mg/dL (8.4-10.2); Carbon Dioxide 23 mmol/L (22-30); Chloride 104 mmol/L (98-107); Glucose 113 mg/dL (74-99); Magnesium 1.7 mg/dL (1.6-2.3); Non-African American GFR(CKD) >90 (>60 ml/min/1.73 sqM); Potassium 3.8 mmol/L (3.5-5.1); Sodium 137 mmol/L (137-145); Total Bilirubin 0.3 mg/dL (0.2-1.3)
--- NOTE | 2024-08-24 18:53 | CT ---
EXAMINATION TYPE: CT brain cspine wo con DATE OF EXAM: 08/24/2024 6:27 PM COMPARISON: None. CLINICAL INDICATION: Female, 53 years old with history of fall; syncopal episode, fall from standing. +hit head, +LOC, TECHNIQUE: Brain: Multiple axial CT images of the brain were obtained without IV contrast. Cspine: Axial CT images from the skull base to the inferior aspect of T2 we obtained without intraven ous contrast. Coronal and sagittal reformatted images were also reviewed. . CT DLP: 1428.7 mGycm, Automated exposure control for dose reduction was used. FINDINGS: Brain: Extra-axial spaces: No abnormal extra-axial fluid collections. Ventricular system: Dilatation in proportion to cerebral atrophy. Cerebral parenchyma: No acute intraparenchymal hemorrhage or mass effect. The samaniego-white junction is well differentiated. Scattered hypoattenuating areas are seen within the white matter. Cerebellum: Unremarkable. Mass effect: No evidence of midline shift. Intracranial vasculature: unremarkable Soft tissues: Normal. Calvarium/osseous structures: No depressed skull fracture. Paranasal sinuses and mastoid air cells: Clear. Visualized orbits: Orbital contents are intact. Cervical spine: Fracture: None. Osseous structures: Anterior spinal fusion hardware visualized spanning C5-C6. Vertebral alignment: Within normal limits. Spinal canal/Neural Foramina: Multilevel facet arthropathy and uncovertebral hypertrophy causing mult ilevel degrees of neural foraminal narrowing. Neck soft tissues: Prevertebral soft tissues are within normal limits. Other: The airway is patent. The lung apices are clear. IMPRESSION: 1. No acute intracranial process. 2. No evidence of cervical spine fracture. [facility], , 08/24/2024 6:51 PM
[2024-08-24] MEDS: MORPHINE SULFATE 4 MG/ML SYRINGE IVP PRN (19:00)
[2024-08-24] MEDS: ONDANSETRON 4 MG/2 ML VIAL IVP STA (19:00)
[2024-08-24] MEDS: HYDROcodone/APAP 5-325MG 1 EACH TAB PO STA (22:29)
[2024-08-24 22:34] VITALS: BP 117/92; PULSE 72; RESP 18; TEMP 98.4
== END 2024-08-24 22:34 | disposition home or self-care (01) ==
LOC: EC 17:30
DX: R55 Syncope and collapse (principal); F17.290 Nicotine dependence, other tobacco product, uncomplicated; Z88.0 Allergy status to penicillin; Z88.1 Allergy status to other antibiotic agents; Z88.2 Allergy status to sulfonamides; Z88.5 Allergy status to narcotic agent; Z88.6 Allergy status to analgesic agent; Z88.8 Allergy status to other drugs, medicaments and biological substances; W19.XXXA Unspecified fall, initial encounter
CPT/HCPCS: 36415; 93005; 85379; 80053; 83735; 84484; 85025; 85610; 85730; 73521; 71046; 72125; 70450; 99285; 96374; 96375; J2270; J2405